=== PATIENT | female | born 1935 | race Caucasian/White ===

== ENCOUNTER 2018-08-22 14:11 | Inpatient (IN) | payer MEDICARE, SELFPAY ==
[2017-01-15 16:07] VITALS: BMI 20.2
[2018-08-22] VITALS (8 sets, daily range): BP systolic 130–165; BP diastolic 60–91; PULSE 96–125; RESP 18–26; TEMP 36.5–36.9; O2SAT 90–98; BMI 21.4; BMI 21.3
--- NOTE | 2018-08-22 15:10 | RAD_ITS ---
STUDY: X-RAY CHEST REASON FOR EXAM: Female, 83 years old. Cough, weakness and chest congestion. TECHNIQUE: Single AP portable view of the chest. COMPARISON: Comparison is made with prior study dated January 15, 2017. FINDINGS: EKG electrodes are seen. Stable elevation of the right hemidiaphragm. There now is evidence of infiltration in the posterior medial segment of the left lower lobe. Blunting of the left costophrenic angle. There is mild cardiac enlargement. Normal mediastinum and akshat. Normal visualized pulmonary arteries. There is atherosclerotic calcification of the aortic arch with tortuosity. Normal visualized thoracic spine. There is degenerative osteoarthritis of the bilateral shoulders. This is worse on the left side. There is no demonstrated abnormality of the visualized soft tissue structures of the upper abdomen. RAD/Chest 1 View (Portable) IMPRESSION: New left lower lobe infiltrate and blunting of the left costophrenic angle. Electronically Signed: Jarrell Thomas MD at 15:29 EDT Tel [phone], Service support ,
--- NOTE | 2018-08-22 15:10 | EKG12_ITS ---
Test Reason : Blood Pressure : / mmHG Vent. Rate : 106 BPM Atrial Rate : 106 BPM P-R Int : 152 ms QRS Dur : 072 ms QT Int : 326 ms P-R-T Axes : 057 001 -23 degrees QTc Int : 433 ms Sinus tachycardia Minimal voltage criteria for LVH, may be normal variant Inferior infarct , age undetermined Abnormal ECG Confirmed by DEYSI STRATTON ([id number]), web content editor SUSAN NICHOLS ([id number]) on 08/27/2018 8:51:19 AM Referred By: DARÍO Confirmed By:DEYSI STRATTON
--- NOTE | 2018-08-22 15:10 | CT_ITS ---
STUDY: CT BRAIN WITHOUT CONTRAST REASON FOR EXAM: Female, 83 years old. Post traumatic weakness RADIATION DOSAGE (If Supplied By Facility): CTDIvol = ( 44.99 ) mGy, DLP = ( 779.24 ) mGycm TECHNIQUE: Transaxial CT imaging of the brain was performed without administration of intravenous contrast material. Individualized dose optimization techniques were used for this CT. COMPARISON: January 04, 2017 FINDINGS: Normal soft tissue structures. Normal calvarium. Calcification of cavernous carotids and vertebral arteries. Moderate atrophy and advanced periventricular white matter ischemic changes.. Normal basal ganglia. 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 Small old left cerebellar infarct There is no intracranial hemorrhage. There are no findings of an acute ischemic infarction. Postsurgical changes of left orbit Diffuse opacification of left maxillary and anterior ethmoid and frontal sinuses. Polypoid mucosal thickening in the right maxillary sinus and minor mucosal thickening of the anterior ethmoid sinuses. No significant change since prior exam CT/Brain/Head without Contrast IMPRESSION: Advanced periventricular white matter ischemic changes and old lacunar infarct in left thalamus. Small old left cerebellar infarct No evidence for acute intracranial bleed. Electronically Signed: Ady Jeffers MD at 16:23 EDT , Service support ,
--- NOTE | 2018-08-22 15:11 | CT_ITS ---
STUDY: CT CERVICAL SPINE WITHOUT CONTRAST REASON FOR EXAM: Female, 83 years old. Trauma RADIATION DOSAGE (If Supplied By Facility): CTDIvol = ( 17.36 ) mGy, DLP = ( 371.87 ) mGycm TECHNIQUE: High resolution transaxial imaging was performed without contrast material. Sagittal and coronal images were reconstructed. Individualized dose optimization techniques were used for this CT. COMPARISON: December 08, 2011 report only FINDINGS: Normal craniovertebral junction. Normal anterior atlantoaxial articulation. Normal odontoid process. Decreased cervical lordosis. Normal vertebral bodies and posterior osseous elements. C2-3: Normal endplates. Normal disc height and morphology. Normal central canal and intervertebral neuroforamina. C3-4: Normal endplates. Normal disc height and morphology. Normal central canal . Severe bilateral neuroforaminal stenosis secondary to bony hypertrophy. C4-5: Narrowed disc space and endplate spurring. No focal disc protrusion. Normal central canal. Severe left neuroforaminal stenosis and moderate narrowing on the right secondary to bony hypertrophy.. C5-6: Narrowed disc space and endplate spurring. No focal disc protrusion. Mild narrowing of central canal. Severe bilateral neuroforaminal stenosis secondary to bony hypertrophy. C6-7: Narrowed disc space and endplate spurring. No focal disc protrusion. Normal central canal. Severe left and moderate right neuroforaminal stenosis secondary to bony hypertrophy C7-T1: Normal endplates. Normal disc height and morphology. Normal central canal and intervertebral neuroforamina. Normal visualized soft tissue structures. CT/Spine Cervical without Contras IMPRESSION: Advanced spondylosis and multilevel spinal stenosis secondary to bony hypertrophy. No evidence for acute fracture or subluxation Electronically Signed: Ady Jeffers MD at 16:29 EDT , Service support ,
--- NOTE | 2018-08-22 15:12 | ED.VISSUMM ---
- ER Visit Summary Date of Service: 08/22/18 Chief Complaint: Generalized weakness History of Present Illness: The patient is a 83 F presenting with generalized weakness and cough. She states she has been ill for the past week. She states she is getting progressively worse. Family states she has decreased appetite and has been eating very little. She has a nonproductive cough. She denies fever. She denies chest pain or shortness of breath. Family states she has fallen twice in the last 2 days. She denies injury with the fall. She lives with her . Family states her has been having more trouble getting her up off the floor after she falls. Physical Examination: Vitals are stable. Patient is afebrile. Alert no acute distress. HEENT exam dry mucous membranes Neck is nontender Lungs are diminished bilaterally. Heart is regular and tachycardic Abdomen is soft nontender nondistended. No guarding or rebound Extremities are unremarkable. Skin is warm and dry. No focal neurologic deficit. Remainder of exam is unremarkable. Emergency Department Course and Treatment: Patient was given albuterol Atrovent aerosols. EKG sinus tachycardia rate of 106. Chest x-ray shows left lower lobe infiltrate. CBC shows a white count 21.5, hemoglobin 11.7, platelets 494. Chemistry shows potassium 3.0. She is given potassium oral replacement. Glucose 203, BUN 22, creatinine 1.15. Troponin 0.214. Lactic acid is normal. Blood cultures were sent. She was given Rocephin and Zithromax IV. Discussed with Dr. Kilgore for admission. Disposition: Admission Impression: Community acquired pneumonia This note was generated with [employer] dictation software. It may contain incorrect words, spelling, and punctuation that were not noted in review of the chart prior to signing ED Disposition - Plan for ED Patient: Chief Complaint: Weakness Referrals: Kofi Sparrow MD [Primary Care Provider] -
[2018-08-22 15:32] LABS: Absolute Lymphocyte Count 1.51 X10^3/ul (0.83-4.51); Absolute Neutrophil Count 17.9 X10^3/uL (2.0-7.7); Basophil# 0.04 X10^3/uL; Basophil% 0.2 % (0-1); Eosinophil# 0.19 X10^3/uL; Eosinophils% 0.9 % (0-5); Hematocrit 36.5 % (37-47); Hemoglobin 11.7 g/dl (12.0-15.0); Lymphocyte # 1.51 X10^3/ul (4.0); Mean Corp Hgb Conc 32.1 g/gl (32-36); Mean Corpuscular Hgb 28.7 pg (27.0-32.0); Mean Corpuscular Volume 89.5 fL (81-99); Mean Platelet Vol. 9.2 fl (6.2-12.0); Monocyte% 7.4 % (0-10); Neutrophil # 17.87 X10^3/uL (2.7-7.7); Platelet Count 494 K/mm3 (150-450); RBC Distribution Width CV 14.6 % (11.6-14.6); RBC Distribution Width SD 47.3 fl (35.1-43.9); Red Blood Count 4.08 M/mm3 (4.2-5.4); White Blood Count 21.5 K/mm3 (4.4-11.0)
[2018-08-22 15:33] LABS: Differential Indicated SCAN CRITERIA MET; POSITIVE COUNT NO; POSITIVE DIFFERENTIAL YES; POSITIVE MORPHOLOGY NO
[2018-08-22 15:44] LABS: Anion Gap 10 (5-15); BUN 22 mg/dL (7-18); BUN/Creat Ratio 19.1 RATIO (10-20); Calcium,Total 8.6 mg/dL (8.5-10.1); Chloride 98 mmol/L (98-107); Creatinine, Serum 1.15 mg/dL (0.55-1.02); EST Glomerular Filtration Rate 48 mL/min (>60); Est Glom Filt Rate - Afr Amer 58 mL/min (>60); Estimated Creatinine Clearance 32.57 ml/min; Glucose 203 mg/dL (74-106); Lactic Acid 1.8 mmol/L (0.4-2.0); Sodium Level 137 mmol/L (136-145)
[2018-08-22] MEDS: Ipratropium/Albuterol Sulfate 3 ML AMPUL.NEB INHALATION (15:45)
[2018-08-22] MEDS: Albuterol 2.5 MG/3 ML VIAL.NEB. INHALATION ×3 (15:45)
[2018-08-22 16:07] LABS: Platelet Estimate ADEQUATE (ADEQ)
[2018-08-22 16:08] LABS: Red Cell Morphology NORM C+C NORMAL (NORM C&C)
[2018-08-22] MEDS: Ceftriaxone 1 GM/50 ML BAG IV (16:47)
[2018-08-22] MEDS: Acetaminophen 500 MG Tablet 1000 MG PO (17:23)
--- NOTE | 2018-08-22 17:53 | PCM.HP.STD ---
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 Status: Chronic (2) Hyperlipidemia Status: Chronic (3) Ischemic cardiomyopathy Status: Chronic (4) S/P angioplasty with stent Status: Chronic Comment: [facility] w/ PCI-RUPERT-LAD & POBA-D1 2002 -- [facility] w/PCI-RUPERT mid LAD 01/15/2017 (5) Non-STEMI (non-ST elevated myocardial infarction) Status: Chronic (6) Hypertension Status: Chronic (7) Hypoxia Status: Chronic (8) Diabetes mellitus, type II Status: Chronic (9) Anxiety and depression Status: Chronic (10) CAD (coronary artery disease) Status: Chronic History of Present Illness Date of Admission: 08/22/18 Chief Complaint: Weakness, shortness of breath, fall The patient is a 83 year old F who presents to the Emergency Room due to weakness with fall and shortness of breath. Patient reports she fell today and also last night. She denies dizziness, lightheadedness. Complains of generalized weakness. Lives at home with her . Denies frequent falls prior to the past 2 days. Denies injury with fall. Denies hitting her head. Complains of nonproductive cough. Denies fever, chills. Reports shortness of breath. She denies home oxygen use. She denies chest pain. Patient reports poor appetite and poor oral intake. Her past medical history includes CAD status post PCI, hypertension, hyperlipidemia, type 2 diabetes mellitus, anxiety, depression, ischemic cardiomyopathy. Past Medical History Past Medical History (Chronic Problems): Chronic Problems (Last Updated 12/06/17 @ 12:07 by HerminiaPlandreeward) custodial use of drug (Chronic) Hyperlipidemia (Chronic) Ischemic cardiomyopathy (Chronic) S/P angioplasty with stent (Chronic) [facility] w/ PCI-RUPERT-LAD & POBA-D1 2002 -- [facility] w/PCI-RUPERT mid LAD 01/15/2017 Non-STEMI (non-ST elevated myocardial infarction) (Chronic) Hypertension (Chronic) Hypoxia (Chronic) Diabetes mellitus, type II (Chronic) Anxiety and depression (Chronic) CAD (coronary artery disease) (Chronic) Medical History: Medical History (Last Updated 12/06/17 @ 12:07 by [employer] Groupward) intermediate frame tender use of drug (Chronic) Z79.899 Hyperlipidemia (Chronic) E78.5 Ischemic cardiomyopathy (Chronic) I25.5 Non-STEMI (non-ST elevated myocardial infarction) (Chronic) I21.4 Hypertension (Chronic) I10 Hypoxia (Chronic) R09.02 Hypotension (Chronic) I95.9 Diabetes mellitus, type II (Chronic) E11.9 CAD (coronary artery disease) (Chronic) I25.10 Allergies No Known Allergies Allergy (Verified 08/22/18 14:14) Home Medications: Ambulatory Orders Medication Instructions Recorded Aspirin [Aspirin, Baby] 81 mg PO DAILY@0800 01/04/17 Acetaminophen [Tylenol Tablet] 650 mg PO Q6H PRN PRN #0 tablet 01/17/17 Clopidogrel Bisulfate [Plavix] 75 mg PO DAILY #30 tablet 01/17/17 Metformin HCl [Metformin HCl ER] 500 mg PO QHS #0 01/17/17 Nitroglycerin [Nitrostat] 0.4 mg SUBLINGUAL Q5M PRN #10 01/17/17 tablet Atorvastatin Calcium [Lipitor] 20 mg PO DAILY 08/22/18 Carvedilol [Coreg (Beta Darin)] 3.125 mg PO BID 08/22/18 Lisinopril [Zestril] 2.5 mg PO DAILY 08/22/18 Venlafaxine HCl [Effexor] 37.5 mg PO DAILY 08/22/18 Surgical History: Surgical History (Last Updated 12/06/17 @ 12:07 by Herminia Ferrer) S/P angioplasty with stent (Chronic) Z95.9 [facility] w/ PCI-RUPERT-LAD & POBA-D1 2002 -- [facility] w/PCI-RUPERT mid LAD 01/15/2017 Surgical History: cholecystectomy, hysterectomy, - - Coronary artery stent placement, lumbar fusion Psychiatric History: Depression 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 Denies: Chills, Fever, Weight Change HEENT: Denies: Head Aches, Sinus Congestion, Sinus Drainage Cardiovascular: Denies: Chest Pain, Edema, Light Headedness, Palpitations, Syncope Respiratory: Reports: Cough, Shortness of Breath. Denies: Sputum production Gastrointestinal: Denies: Abdominal Pain, Constipation, Diarrhea, Nausea, Vomiting Genitourinary: Denies: Dysuria Musculoskeletal: Denies: Joint Pain, Joint Tenderness Skin: Denies: Rash, Wounds Neurological: Denies: Numbness, Tingling, Focal weakness Psychiatric: Reports: Anxiety, Depression Hematologic/ Lymphatic: Denies: Easy Bruising, Easy Bleeding VTE Information - Inpt Only VTE Present on Admission: No VTE Mechan Device Prophylaxis: None VTE Pharm Prophylaxis ordered?: Yes - Physical Exam General: Alert, Oriented x3, Cooperative HEENT: Atraumatic, PERRLA, EOMI, Normocephalic Oral: Dry Mucosa Neck: Supple, No JVD, Negative Carotid Bruits Lungs: Clear to auscultation, Diminished Cardiovascular: Regular Rhythm, Normal S1, Normal S2, No murmurs, Tachycardic Abdomen: Bowel Sounds Present, Soft, Non Tender, Non-Distended Extremities: No clubbing, No cyanosis, No edema, Capillary Refill Less than 3 Seconds Skin: No rashes, No breakdown Musculoskeletal: No Tenderness to Palpation of Joints or Extremities Neurological: Cranial nerves II-XII grossly intact, Neuro grossly intact Psych/Mental Status: Normal Affect, Appropriate Vital Signs Temp Pulse Resp BP Pulse Ox 97.7 F L 123 H 22 H 160/91 H 94 08/22/18 14:11 08/22/18 17:16 08/22/18 17:16 08/22/18 17:16 08/22/18 17:16 Oxygen Delivery Method Room Air Weight: 125 lb Body Mass Index (BMI) 21.4 Laboratory Tests Past 24 Hrs 08/22/18 08/22/18 08/22/18 15:14 15:14 15:14 WBC 21.5 H RBC 4.08 L Hgb 11.7 L Hct 36.5 L MCV 89.5 MCH 28.7 MCHC 32.1 RDW 14.6 RDW Differential 47.3 H Plt Count 494 H MPV 9.2 Immature Gran % (Auto) 1.500 H Neut % (Auto) 83.0 H Lymph % (Auto) 7.0 L Woodson % (Auto) 7.4 Eos % (Auto) 0.9 Baso % (Auto) 0.2 Absolute Neuts (auto) 17.9 H Absolute Lymphs (auto) 1.51 Total Counted Not Reportable Differential Comment Diff Path Review May foll Platelet Estimate ADEQUATE RBC Morphology NORM C+C Sodium 137 Potassium 3.0 L Chloride 98 Carbon Dioxide 29.0 Anion Gap 10 BUN 22 H Creatinine 1.15 H Estim Creat Clear Calc 32.57 Est GFR (MDRD) Af Amer 58 L Est GFR (MDRD) Non-Af 48 L BUN/Creatinine Ratio 19.1 Glucose 203 H Lactic Acid 1.8 Calcium 8.6 Troponin I 0.214 H Urine Color Urine Clarity Urine pH Ur Specific [place] Urine Protein Urine Glucose (UA) Urine Ketones Urine Occult Blood Urine Nitrite Urine Bilirubin Urine Urobilinogen Ur Leukocyte Esterase Urine RBC Urine WBC Ur Squamous Epith Cells Urine Bacteria Urine Mucus 08/22/18 15:17 WBC RBC Hgb Hct MCV MCH MCHC RDW RDW Differential Plt Count MPV Immature Gran % (Auto) Neut % (Auto) Lymph % (Auto) Woodson % (Auto) Eos % (Auto) Baso % (Auto) Absolute Neuts (auto) Absolute Lymphs (auto) Total Counted Differential Comment Diff Path Review Platelet Estimate RBC Morphology Sodium Potassium Chloride Carbon Dioxide Anion Gap BUN Creatinine Estim Creat Clear Calc Est GFR (MDRD) Af Amer Est GFR (MDRD) Non-Af BUN/Creatinine Ratio Glucose Lactic Acid Calcium Troponin I Urine Color Pending Urine Clarity Pending Urine pH Pending Ur Specific [place] Pending Urine Protein Pending Urine Glucose (UA) Pending Urine Ketones Pending Urine Occult Blood Pending Urine Nitrite Pending Urine Bilirubin Pending Urine Urobilinogen Pending Ur Leukocyte Esterase Pending Urine RBC Pending Urine WBC Pending Ur Squamous Epith Cells Pending Urine Bacteria Pending Urine Mucus Pending Assessment/Plan 1. Sepsis (present on admission) secondary to acute community-acquired left lower lobe pneumonia-chest x-ray on admission with left lower lobe infiltrate. Patient with leukocytosis, tachycardia, tachypnea on admission. Patient received azithromycin and IV Rocephin in ER, continue. Albuterol DuoNeb aerosol. Blood cultures drawn in ER, pending. Check urine for strep and Legionella. Tylenol as needed for fever. Check respiratory panel given patient report was recently sick with bronchitis. IS. 2. Hypokalemia-replaced orally in ER. Trend BMP. 3. Acute kidney injury-suspect secondary to sepsis as well as poor oral intake. IV fluids. Trend BMP. 4. Sinus tachycardia-secondary to #1. 5. Elevated troponin-suspect demand ischemia secondary to #1. Trend enzymes. Patient denies chest pain. EKG without ST-T changes. 6. 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 Cervical spine CT showed advanced spondylosis and multilevel spinal stenosis secondary to bony hypertrophy. No evidence of acute fracture or subluxation. PT/OT. CM consult for DC planning. 7. CAD status post PCI-patient follows with Dr. Kelley. Status post angioplasty and stenting of the mid to distal left anterior descending artery December 2016. Continue aspirin, Plavix, statin. 8. Type 2 diabetes mellitus-hold home metformin regimen. Accu-Cheks before meals at bedtime with sliding scale insulin. 9. Hypertension-labile on admission. Continue home carvedilol and lisinopril regimen. PRN hydralazine for systolic greater than 160. 10. Hyperlipidemia-continue statin. 11. Anxiety/depression-continue home Effexor regimen. DVT prophylaxis-heparin subcu. This patient was seen by AMANDA Mathew under the supervision of Dr. Kilgore. <Ayla Kilgore - Last Filed: 08/22/18 20:41> History of Present Illness The patient is a 83 year old F [] Past Medical History Medical History: Medical History (Last Updated 12/06/17 @ 12:07 by Herminia Ferrer) custodial use of drug (Chronic) Z79.899 Hyperlipidemia (Chronic) E78.5 Ischemic cardiomyopathy (Chronic) I25.5 Non-STEMI (non-ST elevated myocardial infarction) (Chronic) I21.4 Hypertension (Chronic) I10 Hypoxia (Chronic) R09.02 Diabetes mellitus, type II (Chronic) E11.9 CAD (coronary artery disease) (Chronic) I25.10 Allergies No Known Allergies Allergy (Verified 08/22/18 14:14) Surgical History: Surgical History (Last Updated 12/06/17 @ 12:07 by Herminia Ferrer) S/P angioplasty with stent (Chronic) Z95.9 [facility] w/ PCI-RUPERT-LAD & POBA-D1 2002 -- [facility] w/PCI-URPERT mid LAD 01/15/2017 - Physical Exam Vital Signs Temp Pulse Resp BP Pulse Ox 98.4 F 120 H 18 130/60 H 90 08/22/18 18:14 08/22/18 18:14 08/22/18 18:14 08/22/18 18:14 08/22/18 18:14 Oxygen Flow Rate (L/min) 2 Oxygen Delivery Method Nasal Cannula Weight: 124 lb 15.998 oz Body Mass Index (BMI) 21.3 Laboratory Tests Past 24 Hrs 08/22/18 08/22/18 08/22/18 15:14 15:14 15:14 WBC 21.5 H RBC 4.08 L Hgb 11.7 L Hct 36.5 L MCV 89.5 MCH 28.7 MCHC 32.1 RDW 14.6 RDW Differential 47.3 H Plt Count 494 H MPV 9.2 Immature Gran % (Auto) 1.500 H Neut % (Auto) 83.0 H Lymph % (Auto) 7.0 L Woodson % (Auto) 7.4 Eos % (Auto) 0.9 Baso % (Auto) 0.2 Absolute Neuts (auto) 17.9 H Absolute Lymphs (auto) 1.51 Total Counted Not Reportable Differential Comment Diff Path Review May foll Platelet Estimate ADEQUATE RBC Morphology NORM C+C Sodium 137 Potassium 3.0 L Chloride 98 Carbon Dioxide 29.0 Anion Gap 10 BUN 22 H Creatinine 1.15 H Estim Creat Clear Calc 32.57 Est GFR (MDRD) Af Amer 58 L Est GFR (MDRD) Non-Af 48 L BUN/Creatinine Ratio 19.1 Glucose 203 H Lactic Acid 1.8 Calcium 8.6 Troponin I 0.214 H Urine Color Urine Clarity Urine pH Ur Specific [place] U Specif Grav (Refrac) Urine Protein Urine Glucose (UA) Urine Ketones Urine Occult Blood Urine Nitrite Urine Bilirubin Urine Urobilinogen Ur Leukocyte Esterase Urine RBC Urine WBC Ur Squamous Epith Cells Ur Transition Epith Cell Ur Renal Epithelial Cell Calcium Oxalate Crystal Uric Acid Crystals Triple Phos Crystals Other Crystals Amorphous Sediment Urine Bacteria Hyaline Casts Fine Granular Casts Coarse Granular Casts Waxy Casts RBC Casts WBC Casts Urine Mucus Urine Trichomonas Urine Yeast 08/22/18 08/22/18 19:07 Unknown WBC RBC Hgb Hct MCV MCH MCHC RDW RDW Differential Plt Count MPV Immature Gran % (Auto) Neut % (Auto) Lymph % (Auto) Woodson % (Auto) Eos % (Auto) Baso % (Auto) Absolute Neuts (auto) Absolute Lymphs (auto) Total Counted Differential Comment Diff Path Review Platelet Estimate RBC Morphology Sodium Potassium Chloride Carbon Dioxide Anion Gap BUN Creatinine Estim Creat Clear Calc Est GFR (MDRD) Af Amer Est GFR (MDRD) Non-Af BUN/Creatinine Ratio Glucose Lactic Acid Calcium Troponin I Pending Urine Color Cancelled Urine Clarity Cancelled Urine pH Cancelled Ur Specific [place] Cancelled U Specif Grav (Refrac) Cancelled Urine Protein Cancelled Urine Glucose (UA) Cancelled Urine Ketones Cancelled Urine Occult Blood Cancelled Urine Nitrite Cancelled Urine Bilirubin Cancelled Urine Urobilinogen Cancelled Ur Leukocyte Esterase Cancelled Urine RBC Cancelled Urine WBC Cancelled Ur Squamous Epith Cells Cancelled Ur Transition Epith Cell Cancelled Ur Renal Epithelial Cell Cancelled Calcium Oxalate Crystal Cancelled Uric Acid Crystals Cancelled Triple Phos Crystals Cancelled Other Crystals Cancelled Amorphous Sediment Cancelled Urine Bacteria Cancelled Hyaline Casts Cancelled Fine Granular Casts Cancelled Coarse Granular Casts Cancelled Waxy Casts Cancelled RBC Casts Cancelled WBC Casts Cancelled Urine Mucus Cancelled Urine Trichomonas Cancelled Urine Yeast Cancelled Assessment/Plan Patient seen under my supervision by Claire PATEL Patient is an 83-year-old female with an extensive past medical history as documented who presented with a complaint of generalized weakness, fever and chills and a cough. Cough was productive of sputum that she could not tell me the color of it. Patient was very weak and so history was mainly taken from her daughters. She had also fallen at home twice within the past day. Review of systems otherwise negative. Vitals in the ED showed pulse rate of 120 and respiratory rate of 18 and she had a white cell count of 21.5. Was afebrile with temperature of 98.4. CXR showed left lower lobe infiltrate. Brain CT done on account of fall showed advanced periventricular white matter ischemic changes and old lacunar infarct in left thalamus with no evidence of acute intracranial bleed. She was admitted to be managed for sepsis due to community-acquired pneumonia. o/e: Vital Signs Height 5 ft 4.17 in Weight: 124 lb 15.998 oz Weight in Pounds 125.0 lbs BMI 20.2 Pulse Ox 90 Temperature 98.4 F Pulse Rate 120 Respiratory Rate 18 Blood Pressure 130/60 Blood Pressure Position Semi-Fowlers General: Alert, Oriented x3, Cooperative HEENT: Atraumatic, PERRLA, EOMI, Normocephalic Oral: Dry Mucosa Neck: Supple, No JVD, Negative Carotid Bruits Lungs: decreased breath sounds bibasally, with coarse crackles in mid and lower lung velasquez Cardiovascular: Regular Rhythm, Normal S1, Normal S2, No murmurs, Tachycardic Abdomen: Bowel Sounds Present, Soft, Non Tender, Non-Distended Extremities: No clubbing, No cyanosis, No edema, Capillary Refill Less than 3 Seconds Skin: No rashes, No breakdown Musculoskeletal: No Tenderness to Palpation of Joints or Extremities Neurological: Cranial nerves II-XII grossly intact, Neuro grossly intact; is very frail and debilitated Psych/Mental Status: Normal Affect, Appropriate Patient is to be managed for sepsis due to community-acquired pneumonia. She was started on IV ceftriaxone and azithromycin. Sputum cultures respiratory panel and blood cultures drawn. To be hydrated with IV fluid. Fall precautions. PT OT consulted she may benefit from placement in light of frequent falls. Troponin is also elevated at 0.214, which may be due to demand ischemia from sepsis. EKG showed no acute ST changes. We will cycle. Rest of management as per Calire Ware PHYSICAL SECURITY MANAGER C's note. I agree with assessment, management and plan as per Claire Ware PHYSICAL SECURITY MANAGER C's note. COde status:full code. patient and her 2 daughters counseled extensively about different types of CODE STATUS including full code, DNR CCA and DNR CCA and the differences. Patient elects to be full code. Total glpe-hg-pcnb time 18 minutes. Code Visit Inpatient E&M: 57892 Init Hosp L3 Procedures: 70040 Advncd Care Plan 30 Min
--- NOTE | 2018-08-22 17:57 | HP.PCM_ITS ---
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 (2) Hyperlipidemia Status: Chronic (3) Ischemic cardiomyopathy Status: Chronic (4) S/P angioplasty with stent Status: Chronic Comment: [facility] w/ PCI-RUPERT-LAD & POBA-D1 2002 -- [facility] w/PCI-RUPERT mid LAD 01/15/2017 (5) Non-STEMI (non-ST elevated myocardial infarction) Status: Chronic (6) Hypertension Status: Chronic (7) Hypoxia Status: Chronic (8) Diabetes mellitus, type II Status: Chronic (9) Anxiety and depression Status: Chronic (10) CAD (coronary artery disease) Status: Chronic History of Present Illness Date of Admission: 08/22/18 Chief Complaint: Weakness, shortness of breath, fall The patient is a 83 year old F who presents to the Emergency Room due to weakness with fall and shortness of breath. Patient reports she fell today and also last night. She denies dizziness, lightheadedness. Complains of generalized weakness. Lives at home with her . Denies frequent falls prior to the past 2 days. Denies injury with fall. Denies hitting her head. Complains of nonproductive cough. Denies fever, chills. Reports shortness of breath. She denies home oxygen use. She denies chest pain. Patient reports poor appetite and poor oral intake. Her past medical history includes CAD status post PCI, hypertension, hyperlipidemia, type 2 diabetes mellitus, anxiety, depression, ischemic cardiomyopathy. Past Medical History Past Medical History (Chronic Problems): Chronic Problems (Last Updated 12/06/17 @ 12:07 by [email or web address]) halfway use of drug (Chronic) Hyperlipidemia (Chronic) Ischemic cardiomyopathy (Chronic) S/P angioplasty with stent (Chronic) [facility] w/ PCI-RUPERT-LAD & POBA-D1 2002 -- [facility] w/PCI-RUPERT mid LAD 01/15/2017 Non-STEMI (non-ST elevated myocardial infarction) (Chronic) Hypertension (Chronic) Hypoxia (Chronic) Diabetes mellitus, type II (Chronic) Anxiety and depression (Chronic) CAD (coronary artery disease) (Chronic) Medical History: Medical History (Last Updated 12/06/17 @ 12:07 by OANDAward) terminal 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 (Chronic) Z79.899 Hyperlipidemia (Chronic) E78.5 Ischemic cardiomyopathy (Chronic) I25.5 Non-STEMI (non-ST elevated myocardial infarction) (Chronic) I21.4 Hypertension (Chronic) I10 Hypoxia (Chronic) R09.02 Hypotension (Chronic) I95.9 Diabetes mellitus, type II (Chronic) E11.9 CAD (coronary artery disease) (Chronic) I25.10 Allergies No Known Allergies Allergy (Verified 08/22/18 14:14) Home Medications: Ambulatory Orders Medication Instructions Recorded Aspirin [Aspirin, Baby] 81 mg PO DAILY@0800 01/04/17 Acetaminophen [Tylenol Tablet] 650 mg PO Q6H PRN PRN #0 tablet 01/17/17 Clopidogrel Bisulfate [Plavix] 75 mg PO DAILY #30 tablet 01/17/17 Metformin HCl [Metformin HCl ER] 500 mg PO QHS #0 01/17/17 Nitroglycerin [Nitrostat] 0.4 mg SUBLINGUAL Q5M PRN #10 01/17/17 tablet Atorvastatin Calcium [Lipitor] 20 mg PO DAILY 08/22/18 Carvedilol [Coreg (Beta Darin)] 3.125 mg PO BID 08/22/18 Lisinopril [Zestril] 2.5 mg PO DAILY 08/22/18 Venlafaxine HCl [Effexor] 37.5 mg PO DAILY 08/22/18 Surgical History: Surgical History (Last Updated 12/06/17 @ 12:07 by Herminia Ferrer) S/P angioplasty with stent (Chronic) Z95.9 [facility] w/ PCI-RUPERT-LAD & POBA-D1 2002 -- [facility] w/PCI-RUPERT mid LAD 01/15/2017 Surgical History: cholecystectomy, hysterectomy, - - Coronary artery stent placement, lumbar fusion Psychiatric History: Depression 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 Denies: Chills, Fever, Weight Change HEENT: Denies: Head Aches, Sinus Congestion, Sinus Drainage Cardiovascular: Denies: Chest Pain, Edema, Light Headedness, Palpitations, Syncope Respiratory: Reports: Cough, Shortness of Breath. Denies: Sputum production Gastrointestinal: Denies: Abdominal Pain, Constipation, Diarrhea, Nausea, Vomiting Genitourinary: Denies: Dysuria Musculoskeletal: Denies: Joint Pain, Joint Tenderness Skin: Denies: Rash, Wounds Neurological: Denies: Numbness, Tingling, Focal weakness Psychiatric: Reports: Anxiety, Depression Hematologic/ Lymphatic: Denies: Easy Bruising, Easy Bleeding VTE Information - Inpt Only VTE Present on Admission: No VTE Mechan Device Prophylaxis: None VTE Pharm Prophylaxis ordered?: Yes - Physical Exam General: Alert, Oriented x3, Cooperative HEENT: Atraumatic, PERRLA, EOMI, Normocephalic Oral: Dry Mucosa Neck: Supple, No JVD, Negative Carotid Bruits Lungs: Clear to auscultation, Diminished Cardiovascular: Regular Rhythm, Normal S1, Normal S2, No murmurs, Tachycardic Abdomen: Bowel Sounds Present, Soft, Non Tender, Non-Distended Extremities: No clubbing, No cyanosis, No edema, Capillary Refill Less than 3 Seconds Skin: No rashes, No breakdown Musculoskeletal: No Tenderness to Palpation of Joints or Extremities Neurological: Cranial nerves II-XII grossly intact, Neuro grossly intact Psych/Mental Status: Normal Affect, Appropriate Vital Signs Temp Pulse Resp BP Pulse Ox 97.7 F L 123 H 22 H 160/91 H 94 08/22/18 14:11 08/22/18 17:16 08/22/18 17:16 08/22/18 17:16 08/22/18 17:16 Oxygen Delivery Method Room Air Weight: 125 lb Body Mass Index (BMI) 21.4 Laboratory Tests Past 24 Hrs 08/22/18 08/22/18 08/22/18 15:14 15:14 15:14 WBC 21.5 H RBC 4.08 L Hgb 11.7 L Hct 36.5 L MCV 89.5 MCH 28.7 MCHC 32.1 RDW 14.6 RDW Differential 47.3 H Plt Count 494 H MPV 9.2 Immature Gran % (Auto) 1.500 H Neut % (Auto) 83.0 H Lymph % (Auto) 7.0 L [place] % (Auto) 7.4 Eos % (Auto) 0.9 Baso % (Auto) 0.2 Absolute Neuts (auto) 17.9 H Absolute Lymphs (auto) 1.51 Total Counted Not Reportable Differential Comment Diff Path Review May foll Platelet Estimate ADEQUATE RBC Morphology NORM C+C Sodium 137 Potassium 3.0 L Chloride 98 Carbon Dioxide 29.0 Anion Gap 10 BUN 22 H Creatinine 1.15 H Estim Creat Clear Calc 32.57 Est GFR (MDRD) Af Amer 58 L Est GFR (MDRD) Non-Af 48 L BUN/Creatinine Ratio 19.1 Glucose 203 H Lactic Acid 1.8 Calcium 8.6 Troponin I 0.214 H Urine Color Urine Clarity Urine pH Ur Specific [place] Urine Protein Urine Glucose (UA) Urine Ketones Urine Occult Blood Urine Nitrite Urine Bilirubin Urine Urobilinogen Ur Leukocyte Esterase Urine RBC Urine WBC Ur Squamous Epith Cells Urine Bacteria Urine Mucus 08/22/18 15:17 WBC RBC Hgb Hct MCV MCH MCHC RDW RDW Differential Plt Count MPV Immature Gran % (Auto) Neut % (Auto) Lymph % (Auto) [place] % (Auto) Eos % (Auto) Baso % (Auto) Absolute Neuts (auto) Absolute Lymphs (auto) Total Counted Differential Comment Diff Path Review Platelet Estimate RBC Morphology Sodium Potassium Chloride Carbon Dioxide Anion Gap BUN Creatinine Estim Creat Clear Calc Est GFR (MDRD) Af Amer Est GFR (MDRD) Non-Af BUN/Creatinine Ratio Glucose Lactic Acid Calcium Troponin I Urine Color Pending Urine Clarity Pending Urine pH Pending Ur Specific [place] Pending Urine Protein Pending Urine Glucose (UA) Pending Urine Ketones Pending Urine Occult Blood Pending Urine Nitrite Pending Urine Bilirubin Pending Urine Urobilinogen Pending Ur Leukocyte Esterase Pending Urine RBC Pending Urine WBC Pending Ur Squamous Epith Cells Pending Urine Bacteria Pending Urine Mucus Pending Assessment/Plan 1. Sepsis (present on admission) secondary to acute community-acquired left lower lobe pneumonia-chest x-ray on admission with left lower lobe infiltrate. Patient with leukocytosis, tachycardia, tachypnea on admission. Patient received azithromycin and IV Rocephin in ER, continue. Albuterol DuoNeb aerosol. Blood cultures drawn in ER, pending. Check urine for strep and Legionella. Tylenol as needed for fever. Check respiratory panel given patient report was recently sick with bronchitis. IS. 2. Hypokalemia-replaced orally in ER. Trend BMP. 3. Acute kidney injury-suspect secondary to sepsis as well as poor oral intake. IV fluids. Trend BMP. 4. Sinus tachycardia-secondary to #1. 5. Elevated troponin-suspect demand ischemia secondary to #1. Trend enzymes. Patient denies chest pain. EKG without ST-T changes. 6. 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 Cervical spine CT showed advanced spondylosis and multilevel spinal stenosis secondary to bony hypertrophy. No evidence of acute fracture or subluxation. PT/OT. CM consult for DC planning. 7. CAD status post PCI-patient follows with Dr. Kelley. Status post angioplasty and stenting of the mid to distal left anterior descending artery December 2016. Continue aspirin, Plavix, statin. 8. Type 2 diabetes mellitus-hold home metformin regimen. Accu-Cheks before meals at bedtime with sliding scale insulin. 9. Hypertension-labile on admission. Continue home carvedilol and lisinopril regimen. PRN hydralazine for systolic greater than 160. 10. Hyperlipidemia-continue statin. 11. Anxiety/depression-continue home Effexor regimen. DVT prophylaxis-heparin subcu. This patient was seen by AMANDA Mathew under the supervision of Dr. Kilgore. <Ayla Kilgore - Last Filed: 08/22/18 20:41> History of Present Illness The patient is a 83 year old F [] Past Medical History Medical History: Medical History (Last Updated 12/06/17 @ 12:07 by Hreminia Ferrer) halfway use of drug (Chronic) Z79.899 Hyperlipidemia (Chronic) E78.5 Ischemic cardiomyopathy (Chronic) I25.5 Non-STEMI (non-ST elevated myocardial infarction) (Chronic) I21.4 Hypertension (Chronic) I10 Hypoxia (Chronic) R09.02 Diabetes mellitus, type II (Chronic) E11.9 CAD (coronary artery disease) (Chronic) I25.10 Allergies No Known Allergies Allergy (Verified 08/22/18 14:14) Surgical History: Surgical History (Last Updated 12/06/17 @ 12:07 by Herminia Ferrer) S/P angioplasty with stent (Chronic) Z95.9 [facility] w/ PCI-RUPERT-LAD & POBA-D1 2002 -- [facility] w/PCI-RUPERT mid LAD 01/15/2017 - Physical Exam Vital Signs Temp Pulse Resp BP Pulse Ox 98.4 F 120 H 18 130/60 H 90 08/22/18 18:14 08/22/18 18:14 08/22/18 18:14 08/22/18 18:14 08/22/18 18:14 Oxygen Flow Rate (L/min) 2 Oxygen Delivery Method Nasal Cannula Weight: 124 lb 15.998 oz Body Mass Index (BMI) 21.3 Laboratory Tests Past 24 Hrs 08/22/18 08/22/18 08/22/18 15:14 15:14 15:14 WBC 21.5 H RBC 4.08 L Hgb 11.7 L Hct 36.5 L MCV 89.5 MCH 28.7 MCHC 32.1 RDW 14.6 RDW Differential 47.3 H Plt Count 494 H MPV 9.2 Immature Gran % (Auto) 1.500 H Neut % (Auto) 83.0 H Lymph % (Auto) 7.0 L [place] % (Auto) 7.4 Eos % (Auto) 0.9 Baso % (Auto) 0.2 Absolute Neuts (auto) 17.9 H Absolute Lymphs (auto) 1.51 Total Counted Not Reportable Differential Comment Diff Path Review May foll Platelet Estimate ADEQUATE RBC Morphology NORM C+C Sodium 137 Potassium 3.0 L Chloride 98 Carbon Dioxide 29.0 Anion Gap 10 BUN 22 H Creatinine 1.15 H Estim Creat Clear Calc 32.57 Est GFR (MDRD) Af Amer 58 L Est GFR (MDRD) Non-Af 48 L BUN/Creatinine Ratio 19.1 Glucose 203 H Lactic Acid 1.8 Calcium 8.6 Troponin I 0.214 H Urine Color Urine Clarity Urine pH Ur Specific [place] U Specif Grav (Refrac) Urine Protein Urine Glucose (UA) Urine Ketones Urine Occult Blood Urine Nitrite Urine Bilirubin Urine Urobilinogen Ur Leukocyte Esterase Urine RBC Urine WBC Ur Squamous Epith Cells Ur Transition Epith Cell Ur Renal Epithelial Cell Calcium Oxalate Crystal Uric Acid Crystals Triple Phos Crystals Other Crystals Amorphous Sediment Urine Bacteria Hyaline Casts Fine Granular Casts Coarse Granular Casts Waxy Casts RBC Casts WBC Casts Urine Mucus Urine Trichomonas Urine Yeast 08/22/18 08/22/18 19:07 Unknown WBC RBC Hgb Hct MCV MCH MCHC RDW RDW Differential Plt Count MPV Immature Gran % (Auto) Neut % (Auto) Lymph % (Auto) [place] % (Auto) Eos % (Auto) Baso % (Auto) Absolute Neuts (auto) Absolute Lymphs (auto) Total Counted Differential Comment Diff Path Review Platelet Estimate RBC Morphology Sodium Potassium Chloride Carbon Dioxide Anion Gap BUN Creatinine Estim Creat Clear Calc Est GFR (MDRD) Af Amer Est GFR (MDRD) Non-Af BUN/Creatinine Ratio Glucose Lactic Acid Calcium Troponin I Pending Urine Color Cancelled Urine Clarity Cancelled Urine pH Cancelled Ur Specific [place] Cancelled U Specif Grav (Refrac) Cancelled Urine Protein Cancelled Urine Glucose (UA) Cancelled Urine Ketones Cancelled Urine Occult Blood Cancelled Urine Nitrite Cancelled Urine Bilirubin Cancelled Urine Urobilinogen Cancelled Ur Leukocyte Esterase Cancelled Urine RBC Cancelled Urine WBC Cancelled Ur Squamous Epith Cells Cancelled Ur Transition Epith Cell Cancelled Ur Renal Epithelial Cell Cancelled Calcium Oxalate Crystal Cancelled Uric Acid Crystals Cancelled Triple Phos Crystals Cancelled Other Crystals Cancelled Amorphous Sediment Cancelled Urine Bacteria Cancelled Hyaline Casts Cancelled Fine Granular Casts Cancelled Coarse Granular Casts Cancelled Waxy Casts Cancelled RBC Casts Cancelled WBC Casts Cancelled Urine Mucus Cancelled Urine Trichomonas Cancelled Urine Yeast Cancelled Assessment/Plan Patient seen under my supervision by Claire PATEL Patient is an 83-year-old female with an extensive past medical history as documented who presented with a complaint of generalized weakness, fever and chills and a cough. Cough was productive of sputum that she could not tell me the color of it. Patient was very weak and so history was mainly taken from her daughters. She had also fallen at home twice within the past day. Review of systems otherwise negative. Vitals in the ED showed pulse rate of 120 and respiratory rate of 18 and she had a white cell count of 21.5. Was afebrile with temperature of 98.4. CXR showed left lower lobe infiltrate. Brain CT done on account of fall showed advanced periventricular white matter ischemic changes and old lacunar infarct in left thalamus with no evidence of acute intracranial bleed. She was admitted to be managed for sepsis due to community- acquired pneumonia. o/e: Vital Signs Height 5 ft 4.17 in Weight: 124 lb 15.998 oz Weight in Pounds 125.0 lbs BMI 20.2 Pulse Ox 90 Temperature 98.4 F Pulse Rate 120 Respiratory Rate 18 Blood Pressure 130/60 Blood Pressure Position Semi-Fowlers General: Alert, Oriented x3, Cooperative HEENT: Atraumatic, PERRLA, EOMI, Normocephalic Oral: Dry Mucosa Neck: Supple, No JVD, Negative Carotid Bruits Lungs: decreased breath sounds bibasally, with coarse crackles in mid and lower lung velasquez Cardiovascular: Regular Rhythm, Normal S1, Normal S2, No murmurs, Tachycardic Abdomen: Bowel Sounds Present, Soft, Non Tender, Non-Distended Extremities: No clubbing, No cyanosis, No edema, Capillary Refill Less than 3 Seconds Skin: No rashes, No breakdown Musculoskeletal: No Tenderness to Palpation of Joints or Extremities Neurological: Cranial nerves II-XII grossly intact, Neuro grossly intact; is very frail and debilitated Psych/Mental Status: Normal Affect, Appropriate Patient is to be managed for sepsis due to community-acquired pneumonia. She was started on IV ceftriaxone and azithromycin. Sputum cultures respiratory panel and blood cultures drawn. To be hydrated with IV fluid. Fall precautions. PT OT consulted she may benefit from placement in light of frequent falls. Troponin is also elevated at 0.214, which may be due to demand ischemia from sepsis. EKG showed no acute ST changes. We will cycle. Rest of management as per Claire Ware ELEVATOR EXAMINER C's note. I agree with ass essment, management and plan as per Claire Ware NP C's note. COde status:full code. * patient and her 2 daughters counseled extensively about different types of CODE STATUS including full code, DNR CCA and DNR CCA and the differences. Patient elects to be full code. Total [id number] time 18 minutes. Code Visit Inpatient E&M: 47649 Init Hosp L3 Procedures: 41788 Advncd Care Plan 30 Min
[2018-08-22] MEDS: 0.9% Normal Saline 1,000 ML 100 ML IV (21:34)
[2018-08-22] MEDS: Heparin Injection (Vial) 5,000 UNIT/ML VIAL 5000 UNIT SC (21:35)
[2018-08-22] MEDS: guaiFENesin 1,200 MG Tablet 1200 MG PO (21:35)
[2018-08-22] MEDS: Carvedilol 3.125 MG TABLET PO (21:36)
[2018-08-22] MEDS: Atorvastatin Calcium 20 MG Tablet PO (21:37)
[2018-08-22] MEDS: Insulin Lispro 100 UNIT/ML INSULN.PEN SC (21:47)
[2018-08-22 21:51] LABS: Bedside Glucose 348 mg/dL (70-110)
[2018-08-23] VITALS (15 sets, daily range): BP systolic 118–143; BP diastolic 57–85; PULSE 86–107; RESP 16–20; TEMP 36.8–37.2; O2SAT 91–98
--- NOTE | 2018-08-23 05:11 | NURSING ---
Lab called with +Rhino virus on pt gave results to Primary PEGGY Harris
[2018-08-23] MEDS: Heparin Injection (Vial) 5,000 UNIT/ML VIAL 5000 UNIT SC ×3 (06:40→22:48)
[2018-08-23] MEDS: 0.9% Normal Saline 1,000 ML 100 ML IV ×2 (06:40→18:40)
[2018-08-23] MEDS: Insulin Lispro 100 UNIT/ML INSULN.PEN SC ×3 (06:43→22:49)
[2018-08-23 06:50] LABS: Absolute Neutrophil Count 19.1 X10^3/uL (2.0-7.7); Basophil# 0.03 X10^3/uL; Basophil% 0.1 % (0-1); Eosinophil# 0.22 X10^3/uL; Hematocrit 30.3 % (37-47); Hemoglobin 9.9 g/dl (12.0-15.0); Lymphocyte % 6.2 % (19-41); Mean Corp Hgb Conc 32.7 g/gl (32-36); Mean Corpuscular Hgb 29.1 pg (27.0-32.0); Mean Corpuscular Volume 89.1 fL (81-99); Mean Platelet Vol. 9.9 fl (6.2-12.0); Monocyte# 1.49 X10^3/uL; Monocyte% 6.6 % (0-10); Neutrophil # 19.06 X10^3/uL (2.7-7.7); Platelet Count 402 K/mm3 (150-450); RBC Distribution Width CV 14.3 % (11.6-14.6); RBC Distribution Width SD 45.6 fl (35.1-43.9); White Blood Count 22.5 K/mm3 (4.4-11.0)
[2018-08-23 06:52] LABS: Anion Gap 6 (5-15); BUN 21 mg/dL (7-18); BUN/Creat Ratio 20.6 RATIO (10-20); Calcium,Total 7.7 mg/dL (8.5-10.1); Chloride 103 mmol/L (98-107); Creatinine, Serum 1.02 mg/dL (0.55-1.02); EST Glomerular Filtration Rate 55 mL/min (>60); Est Glom Filt Rate - Afr Amer 67 mL/min (>60); Estimated Creatinine Clearance 36.72 ml/min; Glucose 202 mg/dL (74-106); Potassium 3.4 mmol/L (3.5-5.1); Sodium Level 136 mmol/L (136-145)
[2018-08-23 06:53] LABS: POSITIVE COUNT NO; POSITIVE DIFFERENTIAL NO; POSITIVE MORPHOLOGY NO
[2018-08-23 07:01] LABS: Bedside Glucose 221 mg/dL (70-110)
[2018-08-23] MEDS: Ipratropium/Albuterol Sulfate 3 ML AMPUL.NEB INHALATION ×5 (07:09→22:54)
--- NOTE | 2018-08-23 08:29 | PCM.PN.HOSP ---
Patient Problems: Active and Suspected Problems (Last Updated 12/06/17 @ 12:07 by Herminia Ferrer) Community acquired pneumonia (Acute) Rhinovirus infection (Acute) Elevated troponin I level (Acute) Subjective: Patient is a 83-year-old female with known history of hyperlipidemia, ischemic cardiomyopathy, hypertension, hypoxia, diabetes type 2, anxiety depression, coronary disease recent fall shortness of breath, the past 2 days. Patient diagnosed with a community acquired pneumonia and elevated troponin. Patient currently has no new complaints, still is coughing, however no other symptomology today no chest pain, no nausea vomiting diarrhea. EKG is nonacute. Viral panel was positive for rhinovirus. Vitals/I&O's: Vital Signs Temp Pulse Resp BP Pulse Ox 98.6 F 95 16 138/78 H 95 08/23/18 06:02 08/23/18 07:53 08/23/18 06:02 08/23/18 06:02 08/23/18 06:02 Oxygen Flow Rate (L/min) 3 Oxygen Delivery Method Nasal Cannula Weight: 56.699 kg Body Mass Index (BMI) 21.3 Intake and Output for Last 24 Hours 08/21/18 08/22/18 08/23/18 23:59 23:59 23:59 Intake Total 1444 / 1444 Balance 1444 / 1444 General: Alert, Oriented x3, Cooperative HEENT: Atraumatic, PERRLA, EOMI Oral: No Gingival or Mucosal Lesions/ Ulcerations, Dry Mucosa Neck: Supple, No JVD, Negative Carotid Bruits Lungs: No wheeze, No rales, Diminished - Bilateral bases, Rhonchi Cardiovascular: Regular rate, Normal S1, Normal S2, No murmurs Abdomen: Soft, Non Tender, Non-Distended Extremities: No clubbing, No cyanosis, Edema - slight Skin: No rashes, No breakdown Musculoskeletal: No Tenderness to Palpation of Joints or Extremities, No Muscle Wasting Lymphatic: No Cervical, Supraclavicular, or Inguinal Adenopathy Neurological: Cranial nerves II-XII grossly intact, Neuro grossly intact, Motor Exam 5/5 strength throughout Psych/Mental Status: Normal Affect, Appropriate, Alert and oriented to time, place, person, mood and affect Microbiology Past 72 Hours 08/22/18 23:30 Interface Orders Respiratory Panel (PCR) - Final Rhinovirus Laboratory Results 08/22/18 15:14: WBC 21.5 H, RBC 4.08 L, Hgb 11.7 L, Hct 36.5 L, MCV 89.5, MCH 28.7, MCHC 32.1, RDW 14.6, RDW Differential 47.3 H, Plt Count 494 H, MPV 9.2, Immature Gran % (Auto) 1.500 H, Neut % (Auto) 83.0 H, Lymph % (Auto) 7.0 L, Morris % (Auto) 7.4, Eos % (Auto) 0.9, Baso % (Auto) 0.2, Absolute Neuts (auto) 17.9 H, Absolute Lymphs (auto) 1.51, Total Counted Not Reportable, Differential Comment , Diff Path Review February, Platelet Estimate ADEQUATE, RBC Morphology NORM C+C 08/22/18 15:14: Sodium 137, Potassium 3.0 L, Chloride 98, Carbon Dioxide 29.0, Anion Gap 10, BUN 22 H, Creatinine 1.15 H, Estim Creat Clear Calc 32.57, Est GFR (MDRD) Af Amer 58 L, Est GFR (MDRD) Non-Af 48 L, BUN/Creatinine Ratio 19.1, Glucose 203 H, Calcium 8.6, Troponin I 0.214 H 08/22/18 15:14: Lactic Acid 1.8 08/22/18 19:07: Troponin I 0.175 H 08/22/18 21:01: Troponin I 0.149 H 08/22/18 21:41: POC Glucose 348 H 08/22/18 : Urine Color Cancelled, Urine Clarity Cancelled, Urine pH Cancelled, Ur Specific [place] Cancelled, U Specif Grav (Refrac) Cancelled, Urine Protein Cancelled, Urine Glucose (UA) Cancelled, Urine Ketones Cancelled, Urine Occult Blood Cancelled, Urine Nitrite Cancelled, Urine Bilirubin Cancelled, Urine Urobilinogen Cancelled, Ur Leukocyte Esterase Cancelled, Urine RBC Cancelled, Urine WBC Cancelled, Ur Squamous Epith Cells Cancelled, Ur Transition Epith Cell Cancelled, Ur Renal Epithelial Cell Cancelled, Calcium Oxalate Crystal Cancelled, Uric Acid Crystals Cancelled, Triple Phos Crystals Cancelled, Other Crystals Cancelled, Amorphous Sediment Cancelled, Urine Bacteria Cancelled, Hyaline Casts Cancelled, Fine Granular Casts Cancelled, Coarse Granular Casts Cancelled, Waxy Casts Cancelled, RBC Casts Cancelled, WBC Casts Cancelled, Urine Mucus Cancelled, Urine Trichomonas Cancelled, Urine Yeast Cancelled 08/23/18 01:28: Troponin I 0.135 H 08/23/18 05:51: WBC 22.5 H, RBC 3.40 L, Hgb 9.9 L, Hct 30.3 L, MCV 89.1, MCH 29.1, MCHC 32.7, RDW 14.3, RDW Differential 45.6 H, Plt Count 402, MPV 9.9, Immature Gran % (Auto) 1.100 H, Neut % (Auto) 85.0 H, Lymph % (Auto) 6.2 L, Morris % (Auto) 6.6, Eos % (Auto) 1.0, Baso % (Auto) 0.1, Absolute Neuts (auto) 19.1 H, Absolute Lymphs (auto) 1.40, Total Counted Not Reportable 08/23/18 05:51: Sodium 136, Potassium 3.4 L, Chloride 103, Carbon Dioxide 27.0, Anion Gap 6, BUN 21 H, Creatinine 1.02, Estim Creat Clear Calc 36.72, Est GFR (MDRD) Af Amer 67, Est GFR (MDRD) Non-Af 55 L, BUN/Creatinine Ratio 20.6 H, Glucose 202 H, Calcium 7.7 L 08/23/18 06:38: POC Glucose 221 H Current Medications Acetaminophen (Tylenol) 650 mg PO Q4H PRN PRN PRN Reason: FEVER Albuterol Sulfate (Ventolin Aerosols) 2.5 mg INHALATION Q2H PRN PRN PRN Reason: SHORTNESS OF BREATH Albuterol/Ipratropium (Duoneb) 3 ml INHALATION Q4H.RT [facility] Last Admin: 08/23/18 07:09 Dose: 3 ml Aspirin (Aspirin, Baby) 81 mg PO DAILY@0800 [facility] Atorvastatin Calcium (Lipitor) 20 mg PO DAILY@2200 [facility] Last Admin: 08/22/18 21:37 Dose: 20 mg Calamine/Phenol (Calmoseptine Ointment) 1 applic TOPICAL 4X/DAY [facility]; Protocol Carvedilol (Coreg) 3.125 mg PO BID [facility] Last Admin: 08/22/18 21:36 Dose: 3.125 mg Clopidogrel Bisulfate (Plavix) 75 mg PO DAILY [facility] Dextrose (D50w Syringe) 0 gm IV X1 PRN; Protocol PRN Reason: Hypoglycemia Glucagon () 1 mg IM .X1 PRN PRN Reason: Hypoglycemia Guaifenesin (Mucinex) 1,200 mg PO BID [facility] Last Admin: 08/22/18 21:35 Dose: 1,200 mg Heparin Sodium (Porcine) (Heparin Na) 5,000 unit SC Q8 [facility] Last Admin: 08/23/18 06:40 Dose: 5,000 unit Hydralazine HCl (Apresoline Iv) 5 mg IV Q4H PRN PRN PRN Reason: BLOOD PRESSURE Sodium Chloride () 1,000 mls @ 100 mls/hr IV .Q10H [facility] Last Admin: 08/23/18 06:40 Dose: 100 mls/hr Azithromycin 500 mg/ Dextrose 255 mls @ 250 mls/hr IV Q24H [facility] Stop: 08/25/18 23:02 Ceftriaxone Sodium (Rocephin) 1 gm in 50 mls @ 100 mls/hr IV Q24H [facility] Potassium Chloride (Kcl 10meq/100ml) 10 meq in 100 mls @ 100 mls/hr IV BOLUS Q1H [facility] Stop: 08/23/18 11:14 Influenza Virus Vaccine Quadrival (Fluarix/Fluzone) 0.5 ml IM .ONCE ONE Stop: 08/23/18 10:01 Insulin Glargine (Lantus (Bkc)) 10 units SC QHS [facility] Insulin Human Lispro (Humalog Kwikpen (Bkc)) 0 unit SC ACHS [facility]; Protocol Last Admin: 08/23/18 06:43 Dose: 2 u Lisinopril (Zestril) 2.5 mg PO DAILY [facility] Nutritional Formula (Lactose Free) (Ensure Enlive) 120 ml PO 4X/DAY [facility] Last Admin: 08/22/18 21:37 Dose: 120 ml Ondansetron HCl (Zofran) 4 mg IV Q8H PRN PRN PRN Reason: NAUSEA Sodium Chloride () 5 - 30 ml IV UD PRN PRN Reason: SALINE FLUSH Venlafaxine HCl (Effexor) 37.5 mg PO DAILY [facility] Medical Necessity - Tobacco Use Smoking Status: Never smoker Tobacco Use: Non-smoker Assessment/Plan All Active Problems (Last Updated 02/08/18 @ 12:07 by Herminia Rodriguez Community acquired pneumonia (Acute) Rhinovirus infection (Acute) Elevated troponin I level (Acute) Patient is a 83-year-old female with known history of hyperlipidemia, ischemic cardiomyopathy, hypertension, hypoxia, diabetes type 2, anxiety depression, coronary disease recent fall shortness of breath, the past 2 days. Patient diagnosed with a community acquired pneumonia and elevated troponin. Patient currently has no new complaints, still is coughing, however no other symptomology today no chest pain, no nausea vomiting diarrhea. EKG is nonacute. Viral panel was positive for rhinovirus. Community-acquired pneumonia/sepsis Patient is on Rocephin and azithromycin for community-acquired pneumonia for a left lobe infiltrate, will continue breathing treatments, Tessalon Perles will be added, continue fluids, and supportive care repeat chest x-ray in the a.m. Rhinovirus Supportive care, patient still seems slightly dehydrated we will continue fluids. Elevated troponins Patient is not complaining of any chest pain, troponins have decreased throughout the night, will check echocardiogram but nonacute at this time. Falls Will have PT OT assess the patient, could be secondary to hypoxia patient was experiencing monitor recommendations Case management has already been consulted. CAD with history of angioplasty and stent Continue home medications, as above Hypertension We will continue home medications seems to be well controlled, no new home medications, continue as needed hydralazine Diabetes type II Will check hemoglobin A1c, will place patient on Lantus 10 units at night as we taken her off of her metformin, monitor blood sugars. Patient already on fingersticks with sliding scale Anxiety and depression: Continue home medications Hyperlipidemia Continue Lipitor DVT prophylaxis heparin Diet cardiac. CODE STATUS full Disposition: Patient will be continue to monitor in the hospital Jean chest x-ray get PT OT assessments will discuss case with case management to provide what home health needs patient might need. Likely discharge over the weekend if continues to improve Chart is dictated with lens silverer software. Errors may occur in dictation that may change providers meaning. This note was generated with [employer] dictation software. It may contain incorrect words, spelling, and punctuation that were not noted in checking the note before signing. Code Visit Inpatient E&M: 29415 Init Hosp L3
--- NOTE | 2018-08-23 08:33 | PN_ITS ---
Patient Problems: Active and Suspected Problems (Last Updated 12/06/17 @ 12:07 by Herminia Ferrer) Community acquired pneumonia (Acute) Rhinovirus infection (Acute) Elevated troponin I level (Acute) Subjective: Patient is a 83-year-old female with known history of hyperlipidemia, ischemic cardiomyopathy, hypertension, hypoxia, diabetes type 2, anxiety depression, coronary disease recent fall shortness of breath, the past 2 days. Patient diagnosed with a community acquired pneumonia and elevated troponin. Patient currently has no new complaints, still is coughing, however no other symptomology today no chest pain, no nausea vomiting diarrhea. EKG is nonacute. Viral panel was positive for rhinovirus. Vitals/I&O's: Vital Signs Temp Pulse Resp BP Pulse Ox 98.6 F 95 16 138/78 H 95 08/23/18 06:02 08/23/18 07:53 08/23/18 06:02 08/23/18 06:02 08/23/18 06:02 Oxygen Flow Rate (L/min) 3 Oxygen Delivery Method Nasal Cannula Weight: 56.699 kg Body Mass Index (BMI) 21.3 Intake and Output for Last 24 Hours 08/21/18 08/22/18 08/23/18 23:59 23:59 23:59 Intake Total 1444 / 1444 Balance 1444 / 1444 General: Alert, Oriented x3, Cooperative HEENT: Atraumatic, PERRLA, EOMI Oral: No Gingival or Mucosal Lesions/ Ulcerations, Dry Mucosa Neck: Supple, No JVD, Negative Carotid Bruits Lungs: No wheeze, No rales, Diminished - Bilateral bases, Rhonchi Cardiovascular: Regular rate, Normal S1, Normal S2, No murmurs Abdomen: Soft, Non Tender, Non-Distended Extremities: No clubbing, No cyanosis, Edema - slight Skin: No rashes, No breakdown Musculoskeletal: No Tenderness to Palpation of Joints or Extremities, No Muscle Wasting Lymphatic: No Cervical, Supraclavicular, or Inguinal Adenopathy Neurological: Cranial nerves II-XII grossly intact, Neuro grossly intact, Motor Exam 5/5 strength throughout Psych/Mental Status: Normal Affect, Appropriate, Alert and oriented to time, place, person, mood and affect Microbiology Past 72 Hours 08/22/18 23:30 Interface Orders Respiratory Panel (PCR) - Final Rhinovirus Laboratory Results 08/22/18 15:14: WBC 21.5 H, RBC 4.08 L, Hgb 11.7 L, Hct 36.5 L, MCV 89.5, MCH 28.7, MCHC 32.1, RDW 14.6, RDW Differential 47.3 H, Plt Count 494 H, MPV 9.2, Immature Gran % (Auto) 1.500 H, Neut % (Auto) 83.0 H, Lymph % (Auto) 7.0 L, [place] % (Auto) 7.4, Eos % (Auto) 0.9, Baso % (Auto) 0.2, Absolute Neuts (auto) 17.9 H, Absolute Lymphs (auto) 1.51, Total Counted Not Reportable, Differential Comment , Diff Path Review February, Platelet Estimate ADEQUATE, RBC Morphology NORM C+C 08/22/18 15:14: Sodium 137, Potassium 3.0 L, Chloride 98, Carbon Dioxide 29.0, Anion Gap 10, BUN 22 H, Creatinine 1.15 H, Estim Creat Clear Calc 32.57, Est GFR (MDRD) Af Amer 58 L, Est GFR (MDRD) Non-Af 48 L, BUN/Creatinine Ratio 19.1, Glucose 203 H, Calcium 8.6, Troponin I 0.214 H 08/22/18 15:14: Lactic Acid 1.8 08/22/18 19:07: Troponin I 0.175 H 08/22/18 21:01: Troponin I 0.149 H 08/22/18 21:41: POC Glucose 348 H 08/22/18 : Urine Color Cancelled, Urine Clarity Cancelled, Urine pH Cancelled, Ur Specific [place] Cancelled, U Specif Grav (Refrac) Cancelled, Urine Protein Cancelled, Urine Glucose (UA) Cancelled, Urine Ketones Cancelled, Urine Occult Blood Cancelled, Urine Nitrite Cancelled, Urine Bilirubin Cancelled, Urine Urobilinogen Cancelled, Ur Leukocyte Esterase Cancelled, Urine RBC Cancelled, Urine WBC Cancelled, Ur Squamous Epith Cells Cancelled, Ur Transition Epith Cell Cancelled, Ur Renal Epithelial Cell Cancelled, Calcium Oxalate Crystal Cancelled, Uric Acid Crystals Cancelled, Triple Phos Crystals Cancelled, Other Crystals Cancelled, Amorphous Sediment Cancelled, Urine Bacteria Cancelled, Hyaline Casts Cancelled, Fine Granular Casts Cancelled, Coarse Granular Casts Cancelled, Waxy Casts Cancelled, RBC Casts Cancelled, WBC Casts Cancelled, Urine Mucus Cancelled, Urine Trichomonas Cancelled, Urine Yeast Cancelled 08/23/18 01:28: Troponin I 0.135 H 08/23/18 05:51: WBC 22.5 H, RBC 3.40 L, Hgb 9.9 L, Hct 30.3 L, MCV 89.1, MCH 29.1, MCHC 32.7, RDW 14.3, RDW Differential 45.6 H, Plt Count 402, MPV 9.9, Immature Gran % (Auto) 1.100 H, Neut % (Auto) 85.0 H, Lymph % (Auto) 6.2 L, [place] % (Auto) 6.6, Eos % (Auto) 1.0, Baso % (Auto) 0.1, Absolute Neuts (auto) 19.1 H, Absolute Lymphs (auto) 1.40, Total Counted Not Reportable 08/23/18 05:51: Sodium 136, Potassium 3.4 L, Chloride 103, Carbon Dioxide 27.0, Anion Gap 6, BUN 21 H, Creatinine 1.02, Estim Creat Clear Calc 36.72, Est GFR (MDRD) Af Amer 67, Est GFR (MDRD) Non-Af 55 L, BUN/Creatinine Ratio 20.6 H, Glucose 202 H, Calcium 7.7 L 08/23/18 06:38: POC Glucose 221 H Current Medications Acetaminophen (Tylenol) 650 mg PO Q4H PRN PRN PRN Reason: FEVER Albuterol Sulfate (Ventolin Aerosols) 2.5 mg INHALATION Q2H PRN PRN PRN Reason: SHORTNESS OF BREATH Albuterol/Ipratropium (Duoneb) 3 ml INHALATION Q4H.RT [facility] Last Admin: 08/23/18 07:09 Dose: 3 ml Aspirin (Aspirin, Baby) 81 mg PO DAILY@0800 [facility] Atorvastatin Calcium (Lipitor) 20 mg PO DAILY@2200 [facility] Last Admin: 08/22/18 21:37 Dose: 20 mg Calamine/Phenol (Calmoseptine Ointment) 1 applic TOPICAL 4X/DAY [facility]; Protocol Carvedilol (Coreg) 3.125 mg PO BID [facility] Last Admin: 08/22/18 21:36 Dose: 3.125 mg Clopidogrel Bisulfate (Plavix) 75 mg PO DAILY [facility] Dextrose (D50w Syringe) 0 gm IV X1 PRN; Protocol PRN Reason: Hypoglycemia Glucagon () 1 mg IM .X1 PRN PRN Reason: Hypoglycemia Guaifenesin (Mucinex) 1,200 mg PO BID [facility] Last Admin: 08/22/18 21:35 Dose: 1,200 mg Heparin Sodium (Porcine) (Heparin Na) 5,000 unit SC Q8 [facility] Last Admin: 08/23/18 06:40 Dose: 5,000 unit Hydralazine HCl (Apresoline Iv) 5 mg IV Q4H PRN PRN PRN Reason: BLOOD PRESSURE Sodium Chloride () 1,000 mls @ 100 mls/hr IV .Q10H [facility] Last Admin: 08/23/18 06:40 Dose: 100 mls/hr Azithromycin 500 mg/ Dextrose 255 mls @ 250 mls/hr IV Q24H [facility] Stop: 08/25/18 23:02 Ceftriaxone Sodium (Rocephin) 1 gm in 50 mls @ 100 mls/hr IV Q24H [facility] Potassium Chloride (Kcl 10meq/100ml) 10 meq in 100 mls @ 100 mls/hr IV BOLUS Q1H [facility] Stop: 08/23/18 11:14 Influenza Virus Vaccine Quadrival (Fluarix/Fluzone) 0.5 ml IM .ONCE ONE Stop: 08/23/18 10:01 Insulin Glargine (Lantus (Bkc)) 10 units SC QHS [facility] Insulin Human Lispro (Humalog Kwikpen (Bkc)) 0 unit SC ACHS [facility]; Protocol Last Admin: 08/23/18 06:43 Dose: 2 u Lisinopril (Zestril) 2.5 mg PO DAILY [facility] Nutritional Formula (Lactose Free) (Ensure Enlive) 120 ml PO 4X/DAY [facility] Last Admin: 08/22/18 21:37 Dose: 120 ml Ondansetron HCl (Zofran) 4 mg IV Q8H PRN PRN PRN Reason: NAUSEA Sodium Chloride () 5 - 30 ml IV UD PRN PRN Reason: SALINE FLUSH Venlafaxine HCl (Effexor) 37.5 mg PO DAILY [facility] Medical Necessity - Tobacco Use Smoking Status: Never smoker Tobacco Use: Non-smoker Assessment/Plan All Active Problems (Last Updated 02/08/18 @ 12:07 by Herminia Rodriguez Community acquired pneumonia (Acute) Rhinovirus infection (Acute) Elevated troponin I level (Acute) Patient is a 83-year-old female with known history of hyperlipidemia, ischemic cardiomyopathy, hypertension, hypoxia, diabetes type 2, anxiety depression, coronary disease recent fall shortness of breath, the past 2 days. Patient diagnosed with a community acquired pneumonia and elevated troponin. Patient currently has no new complaints, still is coughing, however no other symptomology today no chest pain, no nausea vomiting diarrhea. EKG is nonacute. Viral panel was positive for rhinovirus. Community-acquired pneumonia/sepsis Patient is on Rocephin and azithromycin for community-acquired pneumonia for a left lobe infiltrate, will continue breathing treatments, Tessalon Perles will be added, continue fluids, and supportive care repeat chest x-ray in the a.m. Rhinovirus Supportive care, patient still seems slightly dehydrated we will continue fluids. Elevated troponins Patient is not complaining of any chest pain, troponins have decreased throughout the night, will check echocardiogram but nonacute at this time. Falls Will have PT OT assess the patient, could be secondary to hypoxia patient was experiencing monitor recommendations Case management has already been consulted. CAD with history of angioplasty and stent Continue home medications, as above Hypertension We will continue home medications seems to be well controlled, no new home m edications, continue as needed hydralazine Diabetes type II Will check hemoglobin A1c, will place patient on Lantus 10 units at night as we taken her off of her metformin, monitor blood sugars. Patient already on fingersticks with sliding scale Anxiety and depression: Continue home medications Hyperlipidemia Continue Lipitor DVT prophylaxis heparin Diet cardiac. CODE STATUS full Disposition: Patient will be continue to monitor in the hospital Jean chest x- ray get PT OT assessments will discuss case with case management to provide what home health needs patient might need. Likely discharge over the weekend if continues to improve Chart is dictated with utility bill collection clerk software. Errors may occur in dictation that may change providers meaning. This note was generated with [employer] dictation software. It may contain incorrect words, spelling, and punctuation that were not noted in checking the note before signing. Code Visit Inpatient E&M: 79465 Init Hosp L3
--- NOTE | 2018-08-23 08:45 | ECHOD_ITS ---
[id number] ECHO^ECHOD^Echo Complete [id number] TAG_START [facility] Echocardiogram [address] [place], [place] [address] Ordering Physician: Shaun Mejia TAG_ENDED TAG_START Name: VITOR MARVIN Study Date: 08/23/2018 01:27 PM BP: 138/78 mmHg Patient Location: MS3^[id number]^1 BSA: 1.6 m2 : 1935 Gender: Female Height: 64 in Age: 83 yrs Ethnicity: C Weight: 124 lb History: HLD, ICMP, CAD, NSTEMI, PCI, HTN, DMII TAG_ENDED Reason For Study: CAD Procedure This was a 2D Doppler, Color Flow transthoracic echocardiogram. Exam performed portable in patient room. Left Ventricle Normal size and thickness. The estimated ejection fraction is 65 %. Stage 1 diastolic dysfunction. No regional wall motion abnormalities noted. TAG_START I Segments Size 1-2 small X - Cannot 1 - Normal 2 - 3 - Akinetic 4 - Dyskinetic3-5 moderate Interpret Hypokinetic 6-14 large 5 - Aneurysmal 15-16 diffuse TAG_ENDED Right Ventricle Normal size and thickness. Normal systolic function. Atria Normal left atrium. Normal right atrium. Normal atrial septum. Mitral Valve The mitral valve is structurally normal. No prolapse or stenosis seen. Mild (1+) mitral valve insufficiency. Tricuspid Valve Normal tricuspid valve. Mild (1+) tricuspid valve insufficiency. Right ventricular systolic pressure estimated to be 34 mmHg. Aortic Valve Trisinus/trileaflet aortic valve. Mild diffuse aortic valve thickening. Mild aortic stenosis. Pulmonic Valve The pulmonic valve is not well visualized. Great Vessels Normal aortic root. Normal arch. Normal inferior vena cava. Inferior vena cava collapse with sniff. Pericardium/Pleural No pericardial effusion. MMode/2D Measurements & Calculations LVIDd: 4.0 cm IVSd: 0.94 cm LVOT diam: 2.0 cm LVIDs: 2.8 cm LVPWd: 0.95 cm LVOT area: 3.0 cm2 RVDd: 2.9 cm FS: 30.0 % Ao root diam: 3.6 cm LAV(MOD-sp4): 32.9 ml LVAd ap4: 22.4 cm2 LA dimension: 3.6 cm EDV(MOD-sp4): 58.3 ml EDV(sp4-el): 60.9 ml LVAs ap4: 13.9 cm2 ESV(MOD-sp4): 27.5 ml ESV(sp4-el): 27.3 ml EF(MOD-sp4): 52.8 % EF(sp4-el): 55.2 % SV(MOD-sp4): 30.8 ml SV(sp4-el): 33.6 ml LA A2C-A/L_phl: 15.4 cm2 LA A4 area: 13.6 cm2 LA dimension(2D): 3.6 cm RA A4 area: 9.3 cm2 Time Measurements MV dec time: 0.25 sec Doppler Measurements & Calculations MV E max vick: 99.3 cm/sec Lat Peak E' Vick: 7.8 cm/sec Med Peak E' Vick: 5.3 cm/sec MV A max vick: 129.2 cm/sec E/E' lat: 12.7 E/E' med: 18.8 MV E/A: 0.77 MV V2 max: 137.2 cm/sec Ao V2 max: 210.3 cm/sec AI max vick: 366.1 cm/sec MV max P.5 mmHg Ao max P.7 mmHg AI max P.6 mmHg MV V2 mean: 79.2 cm/sec Ao V2 mean: 150.3 cm/sec AI dec slope: 313.8 cm/sec2 MV mean P.8 mmHg Ao mean P.9 mmHg AI P1/2t: 341.7 msec MV V2 VTI: 31.9 cm Ao V2 VTI: 41.9 cm MVA(VTI): 1.6 cm2 FERNANDO(I,D): 1.2 cm2 FERNANDO(V,D): 1.2 cm2 LV V1 max: 82.8 cm/sec SV(LVOT): 50.3 ml TR max vick: 270.1 cm/sec LV V1 max P.7 mmHg TR max P.4 mmHg LV V1 mean P.5 mmHg LV V1 mean: 58.9 cm/sec LV V1 VTI: 16.6 cm MV P1/2t-pr_phl: 93.1 msec Interpretation Summary The estimated ejection fraction is 65 %. Stage 1 diastolic dysfunction. Mild (1+) mitral valve insufficiency. Mild (1+) tricuspid valve insufficiency. Right ventricular systolic pressure estimated to be 34 mmHg. Mild aortic stenosis. Compared to echo report dated 02/19/2017,no appreciable changes noted. TAG_START TAG_ENDED Ordering Physician: Shaun Mejia Referring Physician: ALBA CHATMAN Performed By: Chelsea Pickens, CARLIE, RVT
[2018-08-23] MEDS: Aspirin 81 MG TAB.CHEW PO (10:02)
[2018-08-23] MEDS: Acetaminophen 325 MG Tablet 650 MG PO (10:02)
[2018-08-23] MEDS: Lisinopril 2.5 MG Tablet PO (10:03)
[2018-08-23] MEDS: Clopidogrel Bisulfate 75 MG Tablet PO (10:03)
[2018-08-23] MEDS: Venlafaxine HCl 25 MG Tablet 37.5 MG PO (10:04)
[2018-08-23] MEDS: Carvedilol 3.125 MG TABLET PO ×2 (10:04→22:47)
[2018-08-23] MEDS: guaiFENesin 1,200 MG Tablet 1200 MG PO ×2 (10:04→22:47)
[2018-08-23] MEDS: Menthol/Lanolin/Calamine/Znox 113 GM Tube 1 APPLIC TOPICAL ×4 (10:12→22:48)
[2018-08-23] MEDS: Ceftriaxone 1 GM/50 ML BAG IV (11:40)
--- NOTE | 2018-08-23 12:10 | CASEMGMT ---
RN CM Face to Face with patient for initial transition planning/care coordination assessment. RN CM introduced self and role at [facility]. Patient lying in bed, alert and oriented, family at bedside. Patient willing to participate in assessment and is able to answer all questions appropriately. Care providers, pharmacy, and demographics verified. Patient wishes to discharge home, denies need for home health at this time. Patient states she has no further needs or concerns at this time. CM to follow for discharge planning needs that may arise. PCP: [facility] Specialists: [facility]erred [facility]acy: [facility] Insurance: [employer] [facility] PPO Prescription Benefit: [employer] [facility] PPO Living Will/HPOA: yes Daughter Lisa Pagan LNOK: and daughters Living Arrangements: Patient lives with who assists with ADLs. Lives in 2 story house with bed and bath on 1st floor Transportation: or daughters DME/HHC: Patient has walker, monitor for home oxygen and nebulizer. Was previously at [facility]. declines need for HHC Disposition Plan: Patient to discharge home with family support and follow-up plans in place. Sharon MCKEON, RN, CM
[2018-08-23 12:16] LABS: Bedside Glucose 206 mg/dL (70-110)
[2018-08-23] MEDS: Glucerna Shake 120 ML LIQUID PO ×2 (17:02→22:46)
[2018-08-23 17:15] LABS: Bedside Glucose 135 mg/dL (70-110)
[2018-08-23] MEDS: Atorvastatin Calcium 20 MG Tablet PO (22:47)
[2018-08-23 23:01] LABS: Bedside Glucose 168 mg/dL (70-110)
[2018-08-23] MEDS: Benzonatate 100 MG Capsule PO (23:27)
[2018-08-24] VITALS (18 sets, daily range): BP systolic 138–165; BP diastolic 66–99; PULSE 92–114; RESP 20–26; TEMP 36.7–38.1; O2SAT 89–98
--- NOTE | 2018-08-24 05:55 | RAD_ITS ---
STUDY: X-RAY CHEST REASON FOR EXAM: Female, 83 years old. Shortness of breath TECHNIQUE: One view COMPARISON: August 22, 2018. FINDINGS: The right lung is clear. There is a left lower lobe opacity which may represent platelike atelectatic changes or pneumonia. The heart is slightly enlarged. Normal visualized thoracic spine. Normal visualized ribs, clavicles, and shoulders. There is no demonstrated abnormality of the visualized soft tissue structures of the upper abdomen. RAD/Chest 1 View (Portable) IMPRESSION: A left lower lobe opacity representing either an area of pneumonia or platelike atelectatic changes Electronically Signed: Max Morillo MD at 7:19 EDT Tel , Service support ,
[2018-08-24 06:18] LABS: Absolute Lymphocyte Count 1.34 X10^3/ul (0.83-4.51); Absolute Neutrophil Count 13.6 X10^3/uL (2.0-7.7); Basophil# 0.03 X10^3/uL; Basophil% 0.2 % (0-1); Eosinophil# 0.29 X10^3/uL; Eosinophils% 1.7 % (0-5); Hematocrit 30.1 % (37-47); Hemoglobin 9.8 g/dl (12.0-15.0); Lymphocyte # 1.34 X10^3/ul (4.0); Mean Corp Hgb Conc 32.6 g/gl (32-36); Mean Corpuscular Hgb 29.3 pg (27.0-32.0); Mean Corpuscular Volume 89.9 fL (81-99); Mean Platelet Vol. 9.6 fl (6.2-12.0); Monocyte# 1.19 X10^3/uL; Monocyte% 7.1 % (0-10); Neutrophil # 13.57 X10^3/uL (2.7-7.7); Neutrophil % 81.3 % (47-70); POSITIVE COUNT NO; POSITIVE DIFFERENTIAL NO; POSITIVE MORPHOLOGY NO; Platelet Count 437 K/mm3 (150-450); RBC Distribution Width CV 14.2 % (11.6-14.6); RBC Distribution Width SD 45.4 fl (35.1-43.9); Red Blood Count 3.35 M/mm3 (4.2-5.4); White Blood Count 16.7 K/mm3 (4.4-11.0)
[2018-08-24] MEDS: 0.9% Normal Saline 1,000 ML 100 ML IV ×2 (06:38→18:04)
[2018-08-24] MEDS: Heparin Injection (Vial) 5,000 UNIT/ML VIAL 5000 UNIT SC ×3 (06:38→22:54)
[2018-08-24] MEDS: Ipratropium/Albuterol Sulfate 3 ML AMPUL.NEB INHALATION ×5 (06:46→23:00)
[2018-08-24 06:51] LABS: Bedside Glucose 120 mg/dL (70-110)
[2018-08-24 06:52] LABS: ALB/GLOB Ratio 0.5 RATIO (0.9-2.4); AST(SGOT) 62 U/L (15-37); Alanine Aminotransfer ALT/SGPT 70 U/L (13-56); Albumin, Serum 1.9 g/dL (3.2-5.0); Alkaline Phosphatase 144 U/L (45-117); Anion Gap 8 (5-15); BUN 10 mg/dL (7-18); BUN/Creat Ratio 15.1 RATIO (10-20); Calcium,Total 7.9 mg/dL (8.5-10.1); Chloride 106 mmol/L (98-107); Creatinine, Serum 0.66 mg/dL (0.55-1.02); EST Glomerular Filtration Rate 91 mL/min (>60); Est Glom Filt Rate - Afr Amer 110 mL/min (>60); Estimated Creatinine Clearance 37.45 ml/min; Ferritin 227 ng/mL (8-252); Globulin 3.8 g/dL (2.2-4.2); Glucose 118 mg/dL (74-106); Iron 17 ug/dL (50-170); Iron Binding Capacity,Total 135 ug/dL (250-450); Magnesium 1.7 mg/dL (1.6-2.6); PERCENT IRON SATURATION 12.6 % (15.0-55.0); Phosphorus 2.4 mg/dL (2.5-4.9); Potassium 3.9 mmol/L (3.5-5.1); Protein, Total 5.7 g/dL (6.4-8.2); Sodium Level 138 mmol/L (136-145)
[2018-08-24 07:06] LABS: Hemoglobin A1c 7.9 % (4.2-6.3)
[2018-08-24] MEDS: Aspirin 81 MG TAB.CHEW PO (07:33)
[2018-08-24] MEDS: Magnesium Oxide 400 MG Tablet PO ×2 (07:34→18:03)
--- NOTE | 2018-08-24 07:49 | PCM.PN.HOSP ---
Patient Problems: Active and Suspected Problems (Last Updated 12/06/17 @ 12:07 by Herminia Ferrer) Elevated troponin I level (Acute) Rhinovirus infection (Acute) Community acquired pneumonia (Acute) Subjective: Patient is a 83-year-old female with known history of hyperlipidemia, ischemic cardiomyopathy, hypertension, hypoxia, diabetes type 2, anxiety depression, coronary disease recent fall shortness of breath, the past 2 days. Patient diagnosed with a community acquired pneumonia and elevated troponin. EKG is nonacute. Viral panel was positive for rhinovirus. Review of the chest x-ray shows patient currently complaining of nasal congestion, and still has cough. Nurse reports that patient has not gotten up or move much, however Leukocytosis has improved, she has remained afebrile throughout the night. We will give the patient some [place] and some nasal steroids. Vitals/I&O's: Vital Signs Temp Pulse Resp BP Pulse Ox 98.9 F 103 H 24 H 159/87 H 94 08/24/18 06:43 08/24/18 06:43 08/24/18 06:43 08/24/18 06:43 08/24/18 06:43 Oxygen Flow Rate (L/min) 3 Oxygen Delivery Method Nasal Cannula Weight: 56.699 kg Body Mass Index (BMI) 21.3 Intake and Output for Last 24 Hours 08/22/18 08/23/18 08/24/18 23:59 23:59 23:59 Intake Total 4548 / 4548 1103 / 1103 Balance 4548 / 4548 1103 / 1103 General: Alert, Oriented x3, Cooperative HEENT: Atraumatic, PERRLA, EOMI Oral: No Gingival or Mucosal Lesions/ Ulcerations, Dry Mucosa Neck: No JVD, No Nodes, No Nuchal Rigidity, Trachea Midline Lungs: No wheeze, No rales, Diminished - Left greater than right diminished on the right as well, Rhonchi Cardiovascular: Normal S1, Normal S2, Tachycardic Abdomen: Soft, Non Tender, Non-Distended, Passing Flatus Extremities: No clubbing, No cyanosis, - - Contractions of the toes noted Skin: No rashes, No breakdown Musculoskeletal: No Tenderness to Palpation of Joints or Extremities, No Muscle Wasting Lymphatic: No Cervical, Supraclavicular, or Inguinal Adenopathy Neurological: Cranial nerves II-XII grossly intact, Neuro grossly intact Psych/Mental Status: Normal Affect, Appropriate, Alert and oriented to time, place, person, mood and affect Microbiology Past 72 Hours 08/23/18 10:00 Urine Catheter - Catheter Streptococcus pneumoniae Antigen (M - Final 08/23/18 10:00 Urine Catheter - Catheter Legionella Antigen - Final 08/22/18 23:30 Interface Orders Respiratory Panel (PCR) - Final Rhinovirus Laboratory Results 08/23/18 12:06: POC Glucose 206 H 08/23/18 16:58: POC Glucose 135 H 08/23/18 22:46: POC Glucose 168 H 08/24/18 05:46: WBC 16.7 H, RBC 3.35 L, Hgb 9.8 L, Hct 30.1 L, MCV 89.9, MCH 29.3, MCHC 32.6, RDW 14.2, RDW Differential 45.4 H, Plt Count 437, MPV 9.6, Immature Gran % (Auto) 1.700 H, Neut % (Auto) 81.3 H, Lymph % (Auto) 8.0 L, [place] % (Auto) 7.1, Eos % (Auto) 1.7, Baso % (Auto) 0.2, Absolute Neuts (auto) 13.6 H, Absolute Lymphs (auto) 1.34, Total Counted Not Reportable 08/24/18 05:46: Sodium 138, Potassium 3.9, Chloride 106, Carbon Dioxide 24.0, Anion Gap 8, BUN 10, Creatinine 0.66, Estim Creat Clear Calc 37.45, Est GFR (MDRD) Af Amer 110, Est GFR (MDRD) Non-Af 91, BUN/Creatinine Ratio 15.1, Glucose 118 H, Calcium 7.9 L, Phosphorus 2.4 L, Magnesium 1.7, Iron 17 L, TIBC 135 L, Iron Saturation 12.6 L, Ferritin 227, Total Bilirubin 0.40, AST 62 H, ALT 70 H, Alkaline Phosphatase 144 H, Total Protein 5.7 L, Albumin 1.9 L, Globulin 3.8, Albumin/Globulin Ratio 0.5 L, Folate 9.90 08/24/18 05:46: Vitamin B12 Pending 08/24/18 05:46: Hemoglobin A1c 7.9 H 08/24/18 06:37: POC Glucose 120 H Current Medications Acetaminophen (Tylenol) 650 mg PO Q4H PRN PRN PRN Reason: FEVER Last Admin: 08/23/18 10:02 Dose: 650 mg Albuterol Sulfate (Ventolin Aerosols) 2.5 mg INHALATION Q2H PRN PRN PRN Reason: SHORTNESS OF BREATH Albuterol/Ipratropium (Duoneb) 3 ml INHALATION Q4H.RT [facility] Last Admin: 08/24/18 06:46 Dose: 3 ml Aspirin (Aspirin, Baby) 81 mg PO DAILY@0800 [facility] Last Admin: 08/24/18 07:33 Dose: 81 mg Atorvastatin Calcium (Lipitor) 20 mg PO DAILY@2200 [facility] Last Admin: 08/23/18 22:47 Dose: 20 mg Benzonatate (Tessalon Perle) 100 mg PO TID PRN PRN PRN Reason: COUGH Last Admin: 08/23/18 23:27 Dose: 100 mg Calamine/Phenol (Calmoseptine Ointment) 1 applic TOPICAL 4X/DAY [facility]; Protocol Last Admin: 08/23/18 22:48 Dose: 1 applicatio Carvedilol (Coreg) 3.125 mg PO BID [facility] Last Admin: 08/23/18 22:47 Dose: 3.125 mg Clopidogrel Bisulfate (Plavix) 75 mg PO DAILY [facility] Last Admin: 08/23/18 10:03 Dose: 75 mg Dextrose (D50w Syringe) 0 gm IV X1 PRN; Protocol PRN Reason: Hypoglycemia Glucagon () 1 mg IM .X1 PRN PRN Reason: Hypoglycemia Guaifenesin (Mucinex) 1,200 mg PO BID [facility] Last Admin: 08/23/18 22:47 Dose: 1,200 mg Heparin Sodium (Porcine) (Heparin Na) 5,000 unit SC Q8 [facility] Last Admin: 08/24/18 06:38 Dose: 5,000 unit Hydralazine HCl (Apresoline Iv) 5 mg IV Q4H PRN PRN PRN Reason: BLOOD PRESSURE Sodium Chloride () 1,000 mls @ 100 mls/hr IV .Q10H [facility] Last Admin: 08/24/18 06:38 Dose: 100 mls/hr Azithromycin 500 mg/ Dextrose 255 mls @ 250 mls/hr IV Q24H [facility] Stop: 08/25/18 23:02 Last Admin: 08/23/18 22:41 Dose: 250 mls/hr Ceftriaxone Sodium (Rocephin) 1 gm in 50 mls @ 100 mls/hr IV Q24H [facility] Last Admin: 08/23/18 11:40 Dose: 100 mls/hr Insulin Glargine (Lantus (Bkc)) 10 units SC QHS [facility] Last Admin: 08/23/18 22:51 Dose: 10 unit Insulin Human Lispro (Humalog Kwikpen (Bkc)) 0 unit SC ACHS [facility]; Protocol Last Admin: 08/24/18 06:38 Dose: Not Given Lisinopril (Zestril) 2.5 mg PO DAILY [facility] Last Admin: 08/23/18 10:03 Dose: 2.5 mg Magnesium Oxide (Mag-Ox 400) 400 mg PO BIDCM [facility] Last Admin: 08/24/18 07:34 Dose: 400 mg Nutritional Formula (Lactose Free) (Glucerna Shake) 120 ml PO 4X/DAY [facility] Last Admin: 08/23/18 22:46 Dose: 120 ml Ondansetron HCl (Zofran) 4 mg IV Q8H PRN PRN PRN Reason: NAUSEA Sodium Chloride () 5 - 30 ml IV UD PRN PRN Reason: SALINE FLUSH Sodium Chloride ([place]) 2 spray NASAL TID PRN PRN PRN Reason: NASAL DRYNESS Triamcinolone Acetonide (Nasacort Aq Nasal [place]) 1 spray NASAL DAILY [facility] Venlafaxine HCl (Effexor) 37.5 mg PO DAILY [facility] Last Admin: 08/23/18 10:04 Dose: 37.5 mg Medical Necessity - Tobacco Use Smoking Status: Never smoker Tobacco Use: Non-smoker Assessment/Plan All Active Problems (Last Updated 12/06/17 @ 12:07 by Herminia Ferrer) Elevated troponin I level (Acute) Rhinovirus infection (Acute) Community acquired pneumonia (Acute) Patient is a 83-year-old female with known history of hyperlipidemia, ischemic cardiomyopathy, hypertension, hypoxia, diabetes type 2, anxiety depression, coronary disease recent fall shortness of breath, the past 2 days. Patient diagnosed with a community acquired pneumonia and elevated troponin. Patient currently has no new complaints, still is coughing, however no other symptomology today no chest pain, no nausea vomiting diarrhea. EKG is nonacute. Viral panel was positive for rhinovirus. Community-acquired pneumonia/sepsis Patient looks to be much improved, however is still requiring oxygen, has not mobilize enough, though patient denies need for home health according to case management. Chest x-ray reveals a infiltrate/atelectasis of the left lung on Rocephin and azithromycin for community-acquired pneumonia continue Tessalon Perles, continue fluids, and supportive care repeat chest x-ray in the a.m. patient will be here for the next day or 2 depending on mobilization Rhinovirus Supportive care, patient still seems slightly dehydrated we will continue fluids. Membranes still look dry at this time 100 encourage oral intake Elevated troponins Patient is not complaining of any chest pain, troponins have decreased throughout the night, Echocardiogram shows an EF of 65% and grade 1 diastolic dysfunction no regional wall abnormalities, elevated troponins likely secondary to acute illness we will not further workup. May wish to have further workup as an outpatient. Falls Patient denies any need for home health however was given falls and current illness with decreased mobilization thank you likely patient will need physical therapy, will wait for their recommendations. CAD with history of angioplasty and stent Continue home medications Hypertension A control for 83-year-old continue home medications, continue as needed hydralazine Diabetes type II hemoglobin A1c 1.9, on Lantus 10 units at night as we taken her off of her metformin, monitor blood sugars seems to be better controlled. Patient already on fingersticks with sliding scale Anxiety and depression: Continue home medications Hyperlipidemia Continue Lipitor DVT prophylaxis heparin Diet cardiac. CODE STATUS full Disposition: Patient is not mobilizing leukocytosis looks improved, likely will be here family 24-48 hours depending on patient's functionality. And transition to oral medication upon discharge. Will order laboratories and chest x-ray in the morning for further monitoring Chart is dictated with carroter software. Errors may occur in dictation that may change providers meaning. This note was generated with Webf[employer] dictation software. It may contain incorrect words, spelling, and punctuation that were not noted in checking the note before signing. Code Visit Inpatient E&M: 38163 [facility] H[facility] L3
--- NOTE | 2018-08-24 07:59 | PN_ITS ---
Patient Problems: Active and Suspected Problems (Last Updated 12/06/17 @ 12:07 by Herminia Ferrer) Elevated troponin I level (Acute) Rhinovirus infection (Acute) Community acquired pneumonia (Acute) Subjective: Patient is a 83-year-old female with known history of hyperlipidemia, ischemic cardiomyopathy, hypertension, hypoxia, diabetes type 2, anxiety depression, coronary disease recent fall shortness of breath, the past 2 days. Patient diagnosed with a community acquired pneumonia and elevated troponin. EKG is nonacute. Viral panel was positive for rhinovirus. Review of the chest x-ray shows patient currently complaining of nasal congestion, and still has cough. Nurse reports that patient has not gotten up or move much, however Leukocytosis has improved, she has remained afebrile throughout the night. We will give the patient some [place] and some nasal steroids. Vitals/I&O's: Vital Signs Temp Pulse Resp BP Pulse Ox 98.9 F 103 H 24 H 159/87 H 94 08/24/18 06:43 08/24/18 06:43 08/24/18 06:43 08/24/18 06:43 08/24/18 06:43 Oxygen Flow Rate (L/min) 3 Oxygen Delivery Method Nasal Cannula Weight: 56.699 kg Body Mass Index (BMI) 21.3 Intake and Output for Last 24 Hours 08/22/18 08/23/18 08/24/18 23:59 23:59 23:59 Intake Total 4548 / 4548 1103 / 1103 Balance 4548 / 4548 1103 / 1103 General: Alert, Oriented x3, Cooperative HEENT: Atraumatic, PERRLA, EOMI Oral: No Gingival or Mucosal Lesions/ Ulcerations, Dry Mucosa Neck: No JVD, No Nodes, No Nuchal Rigidity, Trachea Midline Lungs: No wheeze, No rales, Diminished - Left greater than right diminished on the right as well, Rhonchi Cardiovascular: Normal S1, Normal S2, Tachycardic Abdomen: Soft, Non Tender, Non-Distended, Passing Flatus Extremities: No clubbing, No cyanosis, - - Contractions of the toes noted Skin: No rashes, No breakdown Musculoskeletal: No Tenderness to Palpation of Joints or Extremities, No Muscle Wasting Lymphatic: No Cervical, Supraclavicular, or Inguinal Adenopathy Neurological: Cranial nerves II-XII grossly intact, Neuro grossly intact Psych/Mental Status: Normal Affect, Appropriate, Alert and oriented to time, place, person, mood and affect Microbiology Past 72 Hours 08/23/18 10:00 Urine Catheter - Catheter Streptococcus pneumoniae Antigen (M - Final 08/23/18 10:00 Urine Catheter - Catheter Legionella Antigen - Final 08/22/18 23:30 Interface Orders Respiratory Panel (PCR) - Final Rhinovirus Laboratory Results 08/23/18 12:06: POC Glucose 206 H 08/23/18 16:58: POC Glucose 135 H 08/23/18 22:46: POC Glucose 168 H 08/24/18 05:46: WBC 16.7 H, RBC 3.35 L, Hgb 9.8 L, Hct 30.1 L, MCV 89.9, MCH 29.3, MCHC 32.6, RDW 14.2, RDW Differential 45.4 H, Plt Count 437, MPV 9.6, Immature Gran % (Auto) 1.700 H, Neut % (Auto) 81.3 H, Lymph % (Auto) 8.0 L, [place] % (Auto) 7.1, Eos % (Auto) 1.7, Baso % (Auto) 0.2, Absolute Neuts (auto) 13.6 H, Absolute Lymphs (auto) 1.34, Total Counted Not Reportable 08/24/18 05:46: Sodium 138, Potassium 3.9, Chloride 106, Carbon Dioxide 24.0, Anion Gap 8, BUN 10, Creatinine 0.66, Estim Creat Clear Calc 37.45, Est GFR (MDRD) Af Amer 110, Est GFR (MDRD) Non-Af 91, BUN/Creatinine Ratio 15.1, Glucose 118 H, Calcium 7.9 L, Phosphorus 2.4 L, Magnesium 1.7, Iron 17 L, TIBC 135 L, Iron Saturation 12.6 L, Ferritin 227, Total Bilirubin 0.40, AST 62 H, ALT 70 H, Alkaline Phosphatase 144 H, Total Protein 5.7 L, Albumin 1.9 L, Globulin 3.8, Albumin/Globulin Ratio 0.5 L, Folate 9.90 08/24/18 05:46: Vitamin B12 Pending 08/24/18 05:46: Hemoglobin A1c 7.9 H 08/24/18 06:37: POC Glucose 120 H Current Medications Acetaminophen (Tylenol) 650 mg PO Q4H PRN PRN PRN Reason: FEVER Last Admin: 08/23/18 10:02 Dose: 650 mg Albuterol Sulfate (Ventolin Aerosols) 2.5 mg INHALATION Q2H PRN PRN PRN Reason: SHORTNESS OF BREATH Albuterol/Ipratropium (Duoneb) 3 ml INHALATION Q4H.RT [facility] Last Admin: 08/24/18 06:46 Dose: 3 ml Aspirin (Aspirin, Baby) 81 mg PO DAILY@0800 [facility] Last Admin: 08/24/18 07:33 Dose: 81 mg Atorvastatin Calcium (Lipitor) 20 mg PO DAILY@2200 [facility] Last Admin: 08/23/18 22:47 Dose: 20 mg Benzonatate (Tessalon Perle) 100 mg PO TID PRN PRN PRN Reason: COUGH Last Admin: 08/23/18 23:27 Dose: 100 mg Calamine/Phenol (Calmoseptine Ointment) 1 applic TOPICAL 4X/DAY [facility]; Protocol Last Admin: 08/23/18 22:48 Dose: 1 applicatio Carvedilol (Coreg) 3.125 mg PO BID [facility] Last Admin: 08/23/18 22:47 Dose: 3.125 mg Clopidogrel Bisulfate (Plavix) 75 mg PO DAILY [facility] Last Admin: 08/23/18 10:03 Dose: 75 mg Dextrose (D50w Syringe) 0 gm IV X1 PRN; Protocol PRN Reason: Hypoglycemia Glucagon () 1 mg IM .X1 PRN PRN Reason: Hypoglycemia Guaifenesin (Mucinex) 1,200 mg PO BID [facility] Last Admin: 08/23/18 22:47 Dose: 1,200 mg Heparin Sodium (Porcine) (Heparin Na) 5,000 unit SC Q8 [facility] Last Admin: 08/24/18 06:38 Dose: 5,000 unit Hydralazine HCl (Apresoline Iv) 5 mg IV Q4H PRN PRN PRN Reason: BLOOD PRESSURE Sodium Chloride () 1,000 mls @ 100 mls/hr IV .Q10H [facility] Last Admin: 08/24/18 06:38 Dose: 100 mls/hr Azithromycin 500 mg/ Dextrose 255 mls @ 250 mls/hr IV Q24H [facility] Stop: 08/25/18 23:02 Last Admin: 08/23/18 22:41 Dose: 250 mls/hr Ceftriaxone Sodium (Rocephin) 1 gm in 50 mls @ 100 mls/hr IV Q24H [facility] Last Admin: 08/23/18 11:40 Dose: 100 mls/hr Insulin Glargine (Lantus (Bkc)) 10 units SC QHS [facility] Last Admin: 08/23/18 22:51 Dose: 10 unit Insulin Human Lispro (Humalog Kwikpen (Bkc)) 0 unit SC ACHS [facility]; Protocol Last Admin: 08/24/18 06:38 Dose: Not Given Lisinopril (Zestril) 2.5 mg PO DAILY [facility] Last Admin: 08/23/18 10:03 Dose: 2.5 mg Magnesium Oxide (Mag-Ox 400) 400 mg PO BIDCM [facility] Last Admin: 08/24/18 07:34 Dose: 400 mg Nutritional Formula (Lactose Free) (Glucerna Shake) 120 ml PO 4X/DAY [facility] Last Admin: 08/23/18 22:46 Dose: 120 ml Ondansetron HCl (Zofran) 4 mg IV Q8H PRN PRN PRN Reason: NAUSEA Sodium Chloride () 5 - 30 ml IV UD PRN PRN Reason: SALINE FLUSH Sodium Chloride ([place] Nasal [place]) 2 spray NASAL TID PRN PRN PRN Reason: NASAL DRYNESS Triamcinolone Acetonide (Nasacort Aq Nasal [place]) 1 spray NASAL DAILY [facility] Venlafaxine HCl (Effexor) 37.5 mg PO DAILY [facility] Last Admin: 08/23/18 10:04 Dose: 37.5 mg Medical Necessity - Tobacco Use Smoking Status: Never smoker Tobacco Use: Non-smoker Assessment/Plan All Active Problems (Last Updated 12/06/17 @ 12:07 by Herminia Ferrer) Elevated troponin I level (Acute) Rhinovirus infection (Acute) Community acquired pneumonia (Acute) Patient is a 83-year-old female with known history of hyperlipidemia, ischemic cardiomyopathy, hypertension, hypoxia, diabetes type 2, anxiety depression, coronary disease recent fall shortness of breath, the past 2 days. Patient diagnosed with a community acquired pneumonia and elevated troponin. Patient currently has no new complaints, still is coughing, however no other symptomology today no chest pain, no nausea vomiting diarrhea. EKG is nonacute. Viral panel was positive for rhinovirus. Community-acquired pneumonia/sepsis Patient looks to be much improved, however is still requiring oxygen, has not mobilize enough, though patient denies need for home health according to case management. Chest x-ray reveals a infiltrate/atelectasis of the left lung on Rocephin and azithromycin for community-acquired pneumonia continue Tessalon Perles, continue fluids, and supportive care repeat chest x-ray in the a.m. patient will be here for the next day or 2 depending on mobilization Rhinovirus Supportive care, patient still seems slightly dehydrated we will continue fluids. Membranes still look dry at this time 100 encourage oral intake Elevated troponins Patient is not complaining of any chest pain, troponins have decreased throughout the night, Echocardiogram shows an EF of 65% and grade 1 diastolic dysfunction no regional wall abnormalities, elevated troponins likely secondary to acute illness we will not further workup. May wish to have further workup as an outpatient. Falls Patient denies any need for home health however was given falls and current illness with decreased mobilization thank you likely patient will need physical therapy, will wait for their recommendations. CAD with history of angioplasty and stent Continue home medications Hypertension A control for 83-year-old continue home medications, continue as needed hydralazine Diabetes type II hemoglobin A1c 1.9, on Lantus 10 units at night as we taken her off of her metformin, monitor blood sugars seems to be better controlled. Patient already on fingersticks with sliding scale Anxiety and depression: Continue home medications Hyperlipidemia Continue Lipitor DVT prophylaxis heparin Diet cardiac. CODE STATUS full Disposition: Patient is not mobilizing leukocytosis looks improved, likely will be here family 24-48 hours depending on patient's functionality. And transition to oral medication upon discharge. Will order laboratories and chest x-ray in the morning for further monitoring Chart is dictated with customer manager software. Errors may occur in dictation that may change providers meaning. This note was generated with [employer]de[employer] dictation software. It may contain incorrect words, spelling, and punctuation that were not noted in checking the note before signing. Code Visit Inpatient E&M: [id number] [facility] H[facility] L3
[2018-08-24] MEDS: Benzonatate 100 MG Capsule PO (08:29)
[2018-08-24] MEDS: Ceftriaxone 1 GM/50 ML BAG IV (10:55)
[2018-08-24] MEDS: Clopidogrel Bisulfate 75 MG Tablet PO (10:55)
[2018-08-24] MEDS: Carvedilol 3.125 MG TABLET PO ×2 (10:56→22:54)
[2018-08-24] MEDS: Fluticasone 0.05% 1 SPRAY NASAL.SRY NASAL (10:57)
[2018-08-24] MEDS: guaiFENesin 1,200 MG Tablet 1200 MG PO ×2 (10:57→22:55)
[2018-08-24] MEDS: Venlafaxine HCl 25 MG Tablet 37.5 MG PO (10:57)
[2018-08-24] MEDS: Lisinopril 2.5 MG Tablet PO (10:57)
[2018-08-24] MEDS: Sodium Chloride 0.65% 1 SPRAY SPRAY.BTL 2 SPRAY NASAL (10:58)
[2018-08-24] MEDS: Menthol/Lanolin/Calamine/Znox 113 GM Tube 1 APPLIC TOPICAL ×4 (11:03→22:53)
[2018-08-24] MEDS: Glucerna Shake 120 ML LIQUID PO ×4 (11:04→22:53)
[2018-08-24] MEDS: Insulin Lispro 100 UNIT/ML INSULN.PEN SC ×2 (11:21→22:54)
[2018-08-24 11:30] LABS: Bedside Glucose 197 mg/dL (70-110)
[2018-08-24 16:55] LABS: Bedside Glucose 129 mg/dL (70-110)
[2018-08-24] MEDS: Acetaminophen 325 MG Tablet 650 MG PO (18:03)
[2018-08-24] MEDS: Atorvastatin Calcium 20 MG Tablet PO (22:56)
[2018-08-24 23:15] LABS: Bedside Glucose 178 mg/dL (70-110)
[2018-08-25] MEDS: Benzonatate 100 MG Capsule PO (01:34)
[2018-08-25 02:00] VITALS: PULSE 88
[2018-08-25] MEDS: 0.9% Normal Saline 1,000 ML 100 ML IV (04:50)
[2018-08-25 05:13] VITALS: BP 163/84; PULSE 96; RESP 20; TEMP 37.7; O2SAT 94
[2018-08-25] MEDS: Heparin Injection (Vial) 5,000 UNIT/ML VIAL 5000 UNIT SC (05:20)
--- NOTE | 2018-08-25 05:55 | RAD_ITS ---
STUDY: X-RAY CHEST REASON FOR EXAM: Female, 83 years old. Cough. TECHNIQUE: Single AP portable view of the chest. COMPARISON: 08/24/2018 FINDINGS: Poor inspiratory effort. Low lung volumes. Right infrahilar/basilar mild interstitial thickening/infiltrates again noted with improvement. Linear platelike atelectasis in the left lung base. There is continued elevation of the diaphragm right side more than the left. Blunting of the right costophrenic sulcus. Normal size heart. Normal mediastinum and akshat. Normal visualized pulmonary arteries. There is atherosclerotic calcification of the aortic arch with tortuosity. There is demineralization of the osseous structures. There is degenerative osteoarthritis of the bilateral shoulders. There is no demonstrated abnormality of the visualized soft tissue structures of the upper abdomen. RAD/Chest 1 View (Portable) IMPRESSION: Low lung volumes. Right infrahilar/basilar mild interstitial thickening/infiltrates. Linear platelike left basilar atelectasis. Electronically Signed: Leonel Muller MD at 10:09 EDT Tel , Service support ,
[2018-08-25 06:00] VITALS: PULSE 88
[2018-08-25 06:48] VITALS: PULSE 92; RESP 18; O2SAT 95
[2018-08-25] MEDS: Ipratropium/Albuterol Sulfate 3 ML AMPUL.NEB INHALATION ×2 (06:48→11:10)
[2018-08-25 06:55] LABS: Bedside Glucose 115 mg/dL (70-110)
[2018-08-25 07:00] VITALS: O2SAT 93
[2018-08-25 07:38] LABS: Absolute Lymphocyte Count 1.39 X10^3/ul (0.83-4.51); Absolute Neutrophil Count 11.2 X10^3/uL (2.0-7.7); Basophil# 0.03 X10^3/uL; Basophil% 0.2 % (0-1); Eosinophil# 0.33 X10^3/uL; Eosinophils% 2.3 % (0-5); Hematocrit 31.5 % (37-47); Hemoglobin 10.1 g/dl (12.0-15.0); Lymphocyte # 1.39 X10^3/ul (4.0); Lymphocyte % 9.7 % (19-41); Mean Corp Hgb Conc 32.1 g/gl (32-36); Mean Corpuscular Hgb 28.5 pg (27.0-32.0); Mean Platelet Vol. 9.5 fl (6.2-12.0); Monocyte% 8.4 % (0-10); Neutrophil # 11.15 X10^3/uL (2.7-7.7); Neutrophil % 77.7 % (47-70); Platelet Count 452 K/mm3 (150-450); RBC Distribution Width CV 14.6 % (11.6-14.6); RBC Distribution Width SD 47.7 fl (35.1-43.9); Red Blood Count 3.54 M/mm3 (4.2-5.4); White Blood Count 14.4 K/mm3 (4.4-11.0)
[2018-08-25 07:51] LABS: POSITIVE COUNT NO; POSITIVE DIFFERENTIAL NO; POSITIVE MORPHOLOGY NO
[2018-08-25 08:11] LABS: ALB/GLOB Ratio 0.5 RATIO (0.9-2.4); AST(SGOT) 45 U/L (15-37); Alanine Aminotransfer ALT/SGPT 64 U/L (13-56); Albumin, Serum 1.9 g/dL (3.2-5.0); Alkaline Phosphatase 146 U/L (45-117); Anion Gap 9 (5-15); BUN 8 mg/dL (7-18); BUN/Creat Ratio 12.2 RATIO (10-20); Calcium,Total 8.2 mg/dL (8.5-10.1); Chloride 108 mmol/L (98-107); Creatinine, Serum 0.66 mg/dL (0.55-1.02); EST Glomerular Filtration Rate 92 mL/min (>60); Est Glom Filt Rate - Afr Amer 111 mL/min (>60); Estimated Creatinine Clearance 37.45 ml/min; Globulin 4.2 g/dL (2.2-4.2); Glucose 103 mg/dL (74-106); Potassium 4.2 mmol/L (3.5-5.1); Protein, Total 6.1 g/dL (6.4-8.2); Sodium Level 140 mmol/L (136-145)
[2018-08-25] MEDS: Clopidogrel Bisulfate 75 MG Tablet PO (09:37)
[2018-08-25] MEDS: Ceftriaxone 1 GM/50 ML BAG IV (09:37)
[2018-08-25] MEDS: Carvedilol 3.125 MG TABLET PO (09:37)
[2018-08-25] MEDS: Venlafaxine HCl 25 MG Tablet 37.5 MG PO (09:37)
[2018-08-25] MEDS: Lisinopril 2.5 MG Tablet PO (09:37)
[2018-08-25] MEDS: Magnesium Oxide 400 MG Tablet PO (09:37)
[2018-08-25] MEDS: Menthol/Lanolin/Calamine/Znox 113 GM Tube 1 APPLIC TOPICAL (09:38)
[2018-08-25] MEDS: guaiFENesin 1,200 MG Tablet 1200 MG PO (09:38)
[2018-08-25] MEDS: Aspirin 81 MG TAB.CHEW PO (09:38)
--- NOTE | 2018-08-25 09:38 | DCINST_ITS ---
- Discharge Diagnoses Current Active Problems: Current Active and Chronic Problems (Last Updated 12/06/17 @ 12:07 by Herminia Ferrer) Elevated troponin I level (Acute) Rhinovirus infection (Acute) Community acquired pneumonia (Acute) You will use the following diet at home:: Cardiac Your food should be the consistency of: Regular Your liquids should be the consistency of: Regular/Thin Discharge Activity: Return to Normal Activity Call your doctor if you observe: Fever of 101 or Higher, Coldness, Increased Pain, Shortness of breath, Dizziness, Chest pain, Increased palpitations (irregular heartbeat) Allergies/Adverse Reactions: Allergies No Known Allergies Allergy (Verified 08/22/18 14:14) Medications to take at Discharge Aspirin [Aspirin, Baby] 81 mg PO DAILY@0800 01/04/17 Acetaminophen [Tylenol Tablet] 650 mg PO Q6H PRN PRN #0 tablet 01/17/17 Clopidogrel Bisulfate [Plavix] 75 mg PO DAILY #30 tablet 01/17/17 Metformin HCl [Metformin HCl ER] 500 mg PO QHS #0 01/17/17 Nitroglycerin [Nitrostat] 0.4 mg SUBLINGUAL Q5M PRN #10 tablet 01/17/17 Atorvastatin Calcium [Lipitor] 20 mg PO DAILY 08/22/18 Carvedilol [Coreg (Beta Darin)] 3.125 mg PO BID 08/22/18 Lisinopril [Zestril] 2.5 mg PO DAILY 08/22/18 Venlafaxine HCl [Effexor] 37.5 mg PO DAILY 08/22/18 Albuterol Inhaler [Ventolin Hfa (SP)] 1 puff INHALATION Q4H PRN PRN #1 inhaler 08/25/18 Amoxicillin/Potassium Clav [Augmentin 875-125 Tablet] 1 each PO Q12H #14 tablet 08/25/18 Benzonatate [Tessalon Perle] 100 mg PO TID PRN PRN #60 capsule 08/25/18 Fluticasone 0.05% [Flonase Nasal [place]] 1 spray NASAL DAILY #30 nasal.sry 08/25/18 Glucerna Shake 120 ml PO 4X/DAY #120 liquid 08/25/18 Guaifenesin [Mucinex] 1,200 mg PO BID #10 tablet 08/25/18 Lactobacillus Acidophilus [Probiotic Gold Acidophilus] 1 each PO DAILY #30 capsule 08/25/18 Magnesium Oxide [Mag-Ox 400] 400 mg PO BIDCM #14 tablet 08/25/18 Sodium Chloride 0.65% [[place] Nasal [place]] 2 spray NASAL TID PRN PRN #1 spray.btl 08/25/18 The following prescriptions were given: Albuterol Inhaler [Ventolin Hfa (SP)] 1 puff INHALATION Q4H PRN PRN #1 inhaler PRN Reason: Sob &/Or Wheezing Amoxicillin/Potassium Clav [Augmentin 875-125 Tablet] 1 each PO Q12H #14 tablet Benzonatate [Tessalon Perle] 100 mg PO TID PRN PRN #60 capsule PRN Reason: COUGH Fluticasone 0.05% [Flonase Nasal [place]] 1 spray NASAL DAILY #30 nasal.sry Lactobacillus Acidophilus [Probiotic Gold Acidophilus] 1 each PO DAILY #30 capsule Sodium Chloride 0.65% [[place] Nasal [place]] 2 spray NASAL TID PRN PRN #1 spray.btl PRN Reason: NASAL DRYNESS Guaifenesin [Mucinex] 1,200 mg PO BID #10 tablet Magnesium Oxide [Mag-Ox 400] 400 mg PO BIDCM #14 tablet Glucerna Shake 120 ml PO 4X/DAY #120 liquid Primary Care Physician: Kofi Sparrow MD [Primary Care Provider] - Please follow up with your Primary Care Physician in: 1 week Test Results: Test results from this visit will be discussed in further detail at your follow- up appointment, if applicable.
[2018-08-25] MEDS: Fluticasone 0.05% 1 SPRAY NASAL.SRY NASAL (09:39)
--- NOTE | 2018-08-25 09:39 | PCM.DC.SUM ---
Discharge Date and Diagnosis - Problem List Patient Problems: Active and Suspected Problems (Last Updated 12/06/17 @ 12:07 by L'ArcoBaleno) Elevated troponin I level (Acute) Rhinovirus infection (Acute) Community acquired pneumonia (Acute) Date of Admission: 08/22/18 Date of Discharge: 08/25/18 - Primary Discharge Diagnosis Active and Suspected Problems (Last Updated 12/06/17 @ 12:07 by L'ArcoBaleno) Elevated troponin I level (Acute) Rhinovirus infection (Acute) Community acquired pneumonia (Acute) - Secondary Discharge Diagnosis Chronic Problems (Last Updated 12/06/17 @ 12:07 by L'ArcoBaleno) care home use of drug (Chronic) Hyperlipidemia (Chronic) Ischemic cardiomyopathy (Chronic) S/P angioplasty with stent (Chronic) [facility] w/ PCI-RUPERT-LAD & POBA-D1 2002 -- [facility] w/PCI-RUPERT mid LAD 01/15/2017 Non-STEMI (non-ST elevated myocardial infarction) (Chronic) Hypertension (Chronic) Hypoxia (Chronic) Diabetes mellitus, type II (Chronic) Anxiety and depression (Chronic) CAD (coronary artery disease) (Chronic) Hospital Course and Treatment Imaging Results: 08/25/18 05:55 Chest 1 View (Portable) [RAD] AM (NON MEDS) STUDY: X-RAY CHEST REASON FOR EXAM: Female, 83 years old. Shortness of breath TECHNIQUE: One view COMPARISON: August 22, 2018. FINDINGS: The right lung is clear. There is a left lower lobe opacity which may represent platelike atelectatic changes or pneumonia. The heart is slightly enlarged. Normal visualized thoracic spine. Normal visualized ribs, clavicles, and shoulders. There is no demonstrated abnormality of the visualized soft tissue structures of the upper abdomen. RAD/Chest 1 View (Portable) IMPRESSION: A left lower lobe opacity representing either an area of pneumonia or platelike atelectatic changes Electronically Signed: Max Morillo MD at 7:19 EDT Tel , Service support , Operations: None Procedures: 2-D Echocardiogram - [id number] ECHO^ECHOD^Echo Complete [id number] TAG_START Cardiovascular Services Echocardiogram [facility] [place] [address] Ordering Physician: Shaun Mejia TAG_ENDED TAG_START Name: VITOR MARVIN Study Date: 08/23/2018 01:27 PM BP: 138/78 mmHg Patient Location: MS3^MS308^1 BSA: 1.6 m2 : 1935 Gender: Female Height: 64 in Age: 83 yrs Ethnicity: C Weight: 124 lb History: HLD, ICMP, CAD, NSTEMI, PCI, HTN, DMII TAG_ENDED Reason For Study: CAD Procedure This was a 2D Doppler, Color Flow transthoracic echocardiogram. Exam performed portable in patient room. Left Ventricle Normal size and thickness. The estimated ejection fraction is 65 %. Stage 1 diastolic dysfunction. No regional wall motion abnormalities noted. Summary of Care Provided: Patient is a 83-year-old female with known history of hyperlipidemia, ischemic cardiomyopathy, hypertension, hypoxia, diabetes type 2, anxiety depression, coronary disease recent fall shortness of breath, the past 2 days. Patient diagnosed with a community acquired pneumonia and elevated troponin. EKG is nonacute. Viral panel was positive for rhinovirus. Community-acquired pneumonia/sepsis Patient looks to be much improved no longer requiring oxygen, will set up home health, continue patient on Augmentin for the next 7 days for a total of 10 days worth of antibiotics to treat for community-acquired pneumonia, will give patient Tessalon Perles and inhaler to go home on. Prevent any diarrhea associated with antibiotics will give patient probiotics. Rhinovirus Supportive care, encourage oral intake Elevated troponins Patient is not complaining of any chest pain, Echocardiogram shows an EF of 65% and grade 1 diastolic dysfunction no regional wall abnormalities, elevated troponins likely secondary to acute illness we will not further workup. May wish to have further workup as an outpatient possible stress test.. Falls Set patient up with home health PT OT have discussed this with family, hopefully patient will accept and seems to be debilitated. CAD with history of angioplasty and stent Continue home medications Hypertension continue home medications Diabetes type II hemoglobin A1c 7.9, start home medications Anxiety and depression: Continue home medications Hyperlipidemia Continue Lipitor Diet cardiac. CODE STATUS full Disposition: Home with home health Chart is dictated with metal worker software. Errors may occur in dictation that may change providers meaning. This note was generated with [employer] dictation software. It may contain incorrect words, spelling, and punctuation that were not noted in checking the note before signing. Patient Problems: Active and Suspected Problems (Last Updated 12/06/17 @ 12:07 by Herminia Ferrer) Elevated troponin I level (Acute) Rhinovirus infection (Acute) Community acquired pneumonia (Acute) Subjective: Patient wishes to go home, feels much better has been off oxygen satting 93%. Family is in agreement that they wished to take her home and do not wish any subacute rehabilitation. - Physical Exam General: Alert, Oriented x3, Cooperative HEENT: Atraumatic, PERRLA, EOMI, Normocephalic Neck: Supple, No JVD, Negative Carotid Bruits Lungs: Clear to auscultation, Diminished, Rhonchi Cardiovascular: Regular rate, No murmurs Abdomen: Bowel Sounds Present, Soft, Non Tender Extremities: No edema, Capillary Refill Less than 3 Seconds Skin: No rashes, No breakdown Musculoskeletal: No Tenderness to Palpation of Joints or Extremities, - - Contraction of the toes, generalized debilitation Lymphatic: No Cervical, Supraclavicular, or Inguinal Adenopathy Neurological: Cranial nerves II-XII grossly intact, Neuro grossly intact Psych/Mental Status: Normal Affect, Appropriate, Alert and oriented to time, place, person, mood and affect Vital Signs Temp Pulse Resp BP Pulse Ox 99.9 F H 92 18 163/84 H 93 08/25/18 05:13 08/25/18 06:48 08/25/18 06:48 08/25/18 05:13 08/25/18 07:00 Oxygen Flow Rate (L/min) 1 Oxygen Delivery Method Room Air Weight: 56.699 kg Body Mass Index (BMI) 21.3 Intake and Output for Last 24 Hours 08/23/18 08/24/18 08/25/18 23:59 23:59 23:59 Intake Total 4548 / 4548 3323 / 3323 1380 / 1380 Balance 4548 / 4548 3323 / 3323 1380 / 1380 Microbiology Past 72 Hours 08/22/18 16:45 Blood Culture - Preliminary Blood Culture (Wb) - Anticubital Right No growth in 48 hours. 08/22/18 15:14 Blood Culture - Preliminary Blood Culture (Wb) - Anticubital Left No growth in 48 hours. 08/23/18 10:00 Streptococcus pneumoniae Antigen (M - Final Urine Catheter - Catheter 08/23/18 10:00 Legionella Antigen - Final Urine Catheter - Catheter 08/22/18 23:30 Respiratory Panel (PCR) - Final Interface Orders Rhinovirus Laboratory Tests Past 24 Hrs 08/25/18 08/25/18 06:42 06:42 WBC 14.4 H RBC 3.54 L Hgb 10.1 L Hct 31.5 L MCV 89.0 MCH 28.5 MCHC 32.1 RDW 14.6 RDW Differential 47.7 H Plt Count 452 H MPV 9.5 Immature Gran % (Auto) 1.700 H Neut % (Auto) 77.7 H Lymph % (Auto) 9.7 L [place] % (Auto) 8.4 Eos % (Auto) 2.3 Baso % (Auto) 0.2 Absolute Neuts (auto) 11.2 H Absolute Lymphs (auto) 1.39 Total Counted Not Reportable Sodium 140 Potassium 4.2 Chloride 108 H Carbon Dioxide 23.0 Anion Gap 9 BUN 8 Creatinine 0.66 Estim Creat Clear Calc 37.45 Est GFR (MDRD) Af Amer 111 Est GFR (MDRD) Non-Af 92 BUN/Creatinine Ratio 12.2 Glucose 103 Calcium 8.2 L Phosphorus 3.0 Magnesium 2.0 Total Bilirubin 0.40 AST 45 H ALT 64 H Alkaline Phosphatase 146 H Total Protein 6.1 L Albumin 1.9 L Globulin 4.2 Albumin/Globulin Ratio 0.5 L POC Glucose 08/25/18 08/24/18 08/24/18 06:53 22:43 16:33 POC Glucose 115 H 178 H 129 H 08/24/18 11:20 POC Glucose 197 H Discharge Activity: Return to Normal Activity Call your doctor if you observe: Fever of 101 or Higher, Coldness, Increased Pain, Shortness of breath, Dizziness, Chest pain, Increased palpitations (irregular heartbeat) Home Medications: Medications to take at Discharge Aspirin [Aspirin, Baby] 81 mg PO DAILY@0800 01/04/17 Acetaminophen [Tylenol Tablet] 650 mg PO Q6H PRN PRN #0 tablet 01/17/17 Clopidogrel Bisulfate [Plavix] 75 mg PO DAILY #30 tablet 01/17/17 Metformin HCl [Metformin HCl ER] 500 mg PO QHS #0 01/17/17 Nitroglycerin [Nitrostat] 0.4 mg SUBLINGUAL Q5M PRN #10 tablet 01/17/17 Atorvastatin Calcium [Lipitor] 20 mg PO DAILY 08/22/18 Carvedilol [Coreg (Beta Darin)] 3.125 mg PO BID 08/22/18 Lisinopril [Zestril] 2.5 mg PO DAILY 08/22/18 Venlafaxine HCl [Effexor] 37.5 mg PO DAILY 08/22/18 Albuterol Inhaler [Ventolin Hfa (SP)] 1 puff INHALATION Q4H PRN PRN #1 inhaler 08/25/18 Amoxicillin/Potassium Clav [Augmentin 875-125 Tablet] 1 each PO Q12H #14 tablet 08/25/18 Benzonatate [Tessalon Perle] 100 mg PO TID PRN PRN #60 capsule 08/25/18 Fluticasone 0.05% [Flonase Nasal [place]] 1 spray NASAL DAILY #30 nasal.sry 08/25/18 Glucerna Shake 120 ml PO 4X/DAY #120 liquid 08/25/18 Guaifenesin [Mucinex] 1,200 mg PO BID #10 tablet 08/25/18 Lactobacillus Acidophilus [Probiotic Gold Acidophilus] 1 each PO DAILY #30 capsule 08/25/18 Magnesium Oxide [Mag-Ox 400] 400 mg PO BIDCM #14 tablet 08/25/18 Sodium Chloride 0.65% [Ogle Nasal [place]] 2 spray NASAL TID PRN PRN #1 spray.btl 08/25/18 Following Prescrptions Were Given to Patient: Albuterol Inhaler [Ventolin Hfa (SP)] 1 puff INHALATION Q4H PRN PRN #1 inhaler PRN Reason: Sob &/Or Wheezing Amoxicillin/Potassium Clav [Augmentin 875-125 Tablet] 1 each PO Q12H #14 tablet Benzonatate [Tessalon Perle] 100 mg PO TID PRN PRN #60 capsule PRN Reason: COUGH Fluticasone 0.05% [Flonase Nasal [place]] 1 spray NASAL DAILY #30 nasal.sry Lactobacillus Acidophilus [Probiotic Gold Acidophilus] 1 each PO DAILY #30 capsule Sodium Chloride 0.65% [Ogle Nasal [place]] 2 spray NASAL TID PRN PRN #1 spray.btl PRN Reason: NASAL DRYNESS Guaifenesin [Mucinex] 1,200 mg PO BID #10 tablet Magnesium Oxide [Mag-Ox 400] 400 mg PO BIDCM #14 tablet Glucerna Shake 120 ml PO 4X/DAY #120 liquid Primary Care Physician: Kofi Sparrow MD [Primary Care Provider] - Please follow up with your Primary Care Physician in: 1 week Disposition: Home with Home Health Minutes spent on discharge:: 35 Patient Condition:: Good Medical Necessity - Tobacco Use Smoking Status: Never smoker Tobacco Use: Non-smoker Meaningful Use Info Meaningful Use Diagnoses (Choose all that apply): None applicable, CHF - CHF JEANMARIE/ARB ordered at discharge?: Yes Documented LVEF (%): 65 Code Visit Inpatient E&M: 05719 Disch Hosp
[2018-08-25 09:48] VITALS: BP 157/99; PULSE 97; RESP 20; TEMP 36.7; O2SAT 94
--- NOTE | 2018-08-25 09:56 | DS.PCM_ITS ---
Discharge Date and Diagnosis - Problem List Patient Problems: Active and Suspected Problems (Last Updated 12/06/17 @ 12:07 by LearnShark) Elevated troponin I level (Acute) Rhinovirus infection (Acute) Community acquired pneumonia (Acute) Date of Admission: 08/22/18 Date of Discharge: 08/25/18 - Primary Discharge Diagnosis Active and Suspected Problems (Last Updated 12/06/17 @ 12:07 by Learn[employer]) Elevated troponin I level (Acute) Rhinovirus infection (Acute) Community acquired pneumonia (Acute) - Secondary Discharge Diagnosis Chronic Problems (Last Updated 12/06/17 @ 12:07 by Learn[employer]ark) FDC use of drug (Chronic) Hyperlipidemia (Chronic) Ischemic cardiomyopathy (Chronic) S/P angioplasty with stent (Chronic) [facility] w/ PCI-RUPERT-LAD & POBA-D1 2002 -- [facility] w/PCI-RUPERT mid LAD 01/15/2017 Non-STEMI (non-ST elevated myocardial infarction) (Chronic) Hypertension (Chronic) Hypoxia (Chronic) Diabetes mellitus, type II (Chronic) Anxiety and depression (Chronic) CAD (coronary artery disease) (Chronic) Hospital Course and Treatment Imaging Results: 08/25/18 05:55 Chest 1 View (Portable) [RAD] AM (NON MEDS) STUDY: X-RAY CHEST REASON FOR EXAM: Female, 83 years old. Shortness of breath TECHNIQUE: One view COMPARISON: August 22, 2018. FINDINGS: The right lung is clear. There is a left lower lobe opacity which may represent platelike atelectatic changes or pneumonia. The heart is slightly enlarged. Normal visualized thoracic spine. Normal visualized ribs, clavicles, and shoulders. There is no demonstrated abnormality of the visualized soft tissue structures of the upper abdomen. RAD/Chest 1 View (Portable) IMPRESSION: A left lower lobe opacity representing either an area of pneumonia or platelike atelectatic changes Electronically Signed: Max Morillo MD at 7:19 EDT Tel , Service support , Operations: None Procedures: 2-D Echocardiogram - [id number] ECHO^ECHOD^Echo Complete [id number] TAG_START Cardiovascular Services Echocardiogram [facility] [place] [address] Ordering Physician: Shaun Mejia TAG_ENDED TAG_START Name: VITOR MARVIN Study Date: 08/23/2018 01:27 PM BP: 138/78 mmHg Patient Location: MS3^MS308^1 BSA: 1.6 m2 : 1935 Gender: Female Height: 64 in Age: 83 yrs Ethnicity: C Weight: 124 lb History: HLD, ICMP, CAD, NSTEMI, PCI, HTN, DMII TAG_ENDED Reason For Study: CAD Procedure This was a 2D Doppler, Color Flow transthoracic echocardiogram. Exam performed portable in patient room. Left Ventricle Normal size and thickness. The estimated ejection fraction is 65 %. Stage 1 diastolic dysfunction. No regional wall motion abnormalities noted. Summary of Care Provided: Patient is a 83-year-old female with known history of hyperlipidemia, ischemic cardiomyopathy, hypertension, hypoxia, diabetes type 2, anxiety depression, coronary disease recent fall shortness of breath, the past 2 days. Patient diagnosed with a community acquired pneumonia and elevated troponin. EKG is nonacute. Viral panel was positive for rhinovirus. Community-acquired pneumonia/sepsis Patient looks to be much improved no longer requiring oxygen, will set up home health, continue patient on Augmentin for the next 7 days for a total of 10 days worth of antibiotics to treat for community-acquired pneumonia, will give patient Tessalon Perles and inhaler to go home on. Prevent any diarrhea associated with antibiotics will give patient probiotics. Rhinovirus Supportive care, encourage oral intake Elevated troponins Patient is not complaining of any chest pain, Echocardiogram shows an EF of 65% and grade 1 diastolic dysfunction no regional wall abnormalities, elevated troponins likely secondary to acute illness we will not further workup. May wish to have further workup as an outpatient possible stress test.. Falls Set patient up with home health PT OT have discussed this with family, hopefully patient will accept and seems to be debilitated. CAD with history of angioplasty and stent Continue home medications Hypertension continue home medications Diabetes type II hemoglobin A1c 7.9, start home medications Anxiety and depression: Continue home medications Hyperlipidemia Continue Lipitor Diet cardiac. CODE STATUS full Disposition: Home with home health Chart is dictated with attendance officer software. Errors may occur in dictation that may change providers meaning. This note was generated with [employer] dictation software. It may contain incorrect words, spelling, and punctuation that were not noted in checking the note before signing. Patient Problems: Active and Suspected Problems (Last Updated 12/06/17 @ 12:07 by Herminia Ferrer) Elevated troponin I level (Acute) Rhinovirus infection (Acute) Community acquired pneumonia (Acute) Subjective: Patient wishes to go home, feels much better has been off oxygen satting 93%. Family is in agreement that they wished to take her home and do not wish any subacute rehabilitation. - Physical Exam General: Alert, Oriented x3, Cooperative HEENT: Atraumatic, PERRLA, EOMI, Normocephalic Neck: Supple, No JVD, Negative Carotid Bruits Lungs: Clear to auscultation, Diminished, Rhonchi Cardiovascular: Regular rate, No murmurs Abdomen: Bowel Sounds Present, Soft, Non Tender Extremities: No edema, Capillary Refill Less than 3 Seconds Skin: No rashes, No breakdown Musculoskeletal: No Tenderness to Palpation of Joints or Extremities, - - Contraction of the toes, generalized debilitation Lymphatic: No Cervical, Supraclavicular, or Inguinal Adenopathy Neurological: Cranial nerves II-XII grossly intact, Neuro grossly intact Psych/Mental Status: Normal Affect, Appropriate, Alert and oriented to time, place, person, mood and affect Vital Signs Temp Pulse Resp BP Pulse Ox 99.9 F H 92 18 163/84 H 93 08/25/18 05:13 08/25/18 06:48 08/25/18 06:48 08/25/18 05:13 08/25/18 07:00 Oxygen Flow Rate (L/min) 1 Oxygen Delivery Method Room Air Weight: 56.699 kg Body Mass Index (BMI) 21.3 Intake and Output for Last 24 Hours 08/23/18 08/24/18 08/25/18 23:59 23:59 23:59 Intake Total 4548 / 4548 3323 / 3323 1380 / 1380 Balance 4548 / 4548 3323 / 3323 1380 / 1380 Microbiology Past 72 Hours 08/22/18 16:45 Blood Culture - Preliminary Blood Culture (Wb) - Anticubital Right No growth in 48 hours. 08/22/18 15:14 Blood Culture - Preliminary Blood Culture (Wb) - Anticubital Left No growth in 48 hours. 08/23/18 10:00 Streptococcus pneumoniae Antigen (M - Final Urine Catheter - Catheter 08/23/18 10:00 Legionella Antigen - Final Urine Catheter - Catheter 08/22/18 23:30 Respiratory Panel (PCR) - Final Interface Orders Rhinovirus Laboratory Tests Past 24 Hrs 08/25/18 08/25/18 06:42 06:42 WBC 14.4 H RBC 3.54 L Hgb 10.1 L Hct 31.5 L MCV 89.0 MCH 28.5 MCHC 32.1 RDW 14.6 RDW Differential 47.7 H Plt Count 452 H MPV 9.5 Immature Gran % (Auto) 1.700 H Neut % (Auto) 77.7 H Lymph % (Auto) 9.7 L [place] % (Auto) 8.4 Eos % (Auto) 2.3 Baso % (Auto) 0.2 Absolute Neuts (auto) 11.2 H Absolute Lymphs (auto) 1.39 Total Counted Not Reportable Sodium 140 Potassium 4.2 Chloride 108 H Carbon Dioxide 23.0 Anion Gap 9 BUN 8 Creatinine 0.66 Estim Creat Clear Calc 37.45 Est GFR (MDRD) Af Amer 111 Est GFR (MDRD) Non-Af 92 BUN/Creatinine Ratio 12.2 Glucose 103 Calcium 8.2 L Phosphorus 3.0 Magnesium 2.0 Total Bilirubin 0.40 AST 45 H ALT 64 H Alkaline Phosphatase 146 H Total Protein 6.1 L Albumin 1.9 L Globulin 4.2 Albumin/Globulin Ratio 0.5 L POC Glucose 08/25/18 08/24/18 08/24/18 06:53 22:43 16:33 POC Glucose 115 H 178 H 129 H 08/24/18 11:20 POC Glucose 197 H Discharge Activity: Return to Normal Activity Call your doctor if you observe: Fever of 101 or Higher, Coldness, Increased Pain, Shortness of breath, Dizziness, Chest pain, Increased palpitations (irregular heartbeat) Home Medications: Medications to take at Discharge Aspirin [Aspirin, Baby] 81 mg PO DAILY@0800 01/04/17 Acetaminophen [Tylenol Tablet] 650 mg PO Q6H PRN PRN #0 tablet 01/17/17 Clopidogrel Bisulfate [Plavix] 75 mg PO DAILY #30 tablet 01/17/17 Metformin HCl [Metformin HCl ER] 500 mg PO QHS #0 01/17/17 Nitroglycerin [Nitrostat] 0.4 mg SUBLINGUAL Q5M PRN #10 tablet 01/17/17 Atorvastatin Calcium [Lipitor] 20 mg PO DAILY 08/22/18 Carvedilol [Coreg (Beta Darin)] 3.125 mg PO BID 08/22/18 Lisinopril [Zestril] 2.5 mg PO DAILY 08/22/18 Venlafaxine HCl [Effexor] 37.5 mg PO DAILY 08/22/18 Albuterol Inhaler [Ventolin Hfa (SP)] 1 puff INHALATION Q4H PRN PRN #1 inhaler 08/25/18 Amoxicillin/Potassium Clav [Augmentin 875-125 Tablet] 1 each PO Q12H #14 tablet 08/25/18 Benzonatate [Tessalon Perle] 100 mg PO TID PRN PRN #60 capsule 08/25/18 Fluticasone 0.05% [Flonase Nasal [place]] 1 spray NASAL DAILY #30 nasal.sry 08/25/18 Glucerna Shake 120 ml PO 4X/DAY #120 liquid 08/25/18 Guaifenesin [Mucinex] 1,200 mg PO BID #10 tablet 08/25/18 Lactobacillus Acidophilus [Probiotic Gold Acidophilus] 1 each PO DAILY #30 capsule 08/25/18 Magnesium Oxide [Mag-Ox 400] 400 mg PO BIDCM #14 tablet 08/25/18 Sodium Chloride 0.65% [Ritchie Nasal [place]] 2 spray NASAL TID PRN PRN #1 spray.btl 08/25/18 Following Prescrptions Were Given to Patient: Albuterol Inhaler [Ventolin Hfa (SP)] 1 puff INHALATION Q4H PRN PRN #1 inhaler PRN Reason: Sob &/Or Wheezing Amoxicillin/Potassium Clav [Augmentin 875-125 Tablet] 1 each PO Q12H #14 tablet Benzonatate [Tessalon Perle] 100 mg PO TID PRN PRN #60 capsule PRN Reason: COUGH Fluticasone 0.05% [Flonase Nasal [place]] 1 spray NASAL DAILY #30 nasal.sry Lactobacillus Acidophilus [Probiotic Gold Acidophilus] 1 each PO DAILY #30 capsule Sodium Chloride 0.65% [Ritchie Nasal [place]] 2 spray NASAL TID PRN PRN #1 spray.btl PRN Reason: NASAL DRYNESS Guaifenesin [Mucinex] 1,200 mg PO BID #10 tablet Magnesium Oxide [Mag-Ox 400] 400 mg PO BIDCM #14 tablet Glucerna Shake 120 ml PO 4X/DAY #120 liquid Primary Care Physician: Kofi Sparrow MD [Primary Care Provider] - Please follow up with your Primary Care Physician in: 1 week Disposition: Home with Home Health Minutes spent on discharge:: 35 Patient Condition:: Good Medical Necessity - Tobacco Use Smoking Status: Never smoker Tobacco Use: Non-smoker Meaningful Use Info Meaningful Use Diagnoses (Choose all that apply): None applicable, CHF - CHF JEANMARIE/ARB ordered at discharge?: Yes Documented LVEF (%): 65 Code Visit Inpatient E&M: [id number] Disch Hosp
--- NOTE | 2018-08-25 11:38 | NURSING ---
Spoke with Pt and pt about short term placement for rehab or possible home health. declined services. therapy and this RN explained pt level of care and was adamant that he could provide her care and did not want any services. This RN explained if pt or family changed their minds that they can follow up with PCP or consult with a home health service. expressed understanding. This RN called and updated Daughter Lisa about pt and husbands choices.
[2018-08-26 09:25] LABS: Vitamin B12 408 pg/mL (211-911)
[2018-08-26 13:09] LABS: Pathologist Review Reviewed
--- NOTE | 2018-08-27 16:41 | CASEMGMT ---
PEGGY HERNANDEZ Discharge Follow-up Phone Call: JETT: 11 Strata: 3 Call Date: 08/27/18 Discharge Date: 08/25/18 Time of Call: 1640 Duration: 1 min Admitting Diagnosis: Pneumonia RN DAVID attempted to complete follow-up phone call after recent hospitalization. No answer, voice message left with return contact information.
== END 2018-08-25 12:42 | disposition home or self-care (01) | DRG 871 ==
LOC: ED 15:44 → MS3 17:48
PROVIDERS: Nurse Practitioner Family; Admitting Provider Student in an Organized Health Care Education/Training Program; Emergency Provider Emergency Medicine; Family Provider Internal Medicine; PCP Internal Medicine; Visit Provider Internal Medicine
DX: A41.9 Sepsis, unspecified organism (principal); J18.9 Pneumonia, unspecified organism; N17.9 Acute kidney failure, unspecified; Z23 Encounter for immunization; E11.9 Type 2 diabetes mellitus without complications; B34.8 Other viral infections of unspecified site; Z79.84 Long term (current) use of oral hypoglycemic drugs; I25.10 Atherosclerotic heart disease of native coronary artery without angina pectoris; Z95.5 Presence of coronary angioplasty implant and graft; E78.5 Hyperlipidemia, unspecified; I25.5 Ischemic cardiomyopathy; I10 Essential (primary) hypertension
CPT/HCPCS: 36415; 70450; 71045; 72125; 80048; 80053; 82607; 82728; 82746; 82962; 83036; 83540; 83550; 83605; 83735; 84100; 84484; 85025; 87040; 87449; 87633; 93005; 93306; 94640; 97110; 97162; 97165; 97535; 97802; 99283; J7030; J7040; 90686; A4216